=== PATIENT | male | born 1940 | race African-American/Black ===

== ENCOUNTER → 2017-01-21 | Outpatient (CLI) | payer OTHER ==
[~2017-01-21] VITALS: Ht 165.1 cm; Wt 79.4 kg
[~2017-01-21] MED LIST: AMLODIPINE BESY10 MG PO; ANDRO GEL; ANDROGEL1.25 GM TOP; APAP650 PO; ASA81BEC PO; ATORVASTATIN CA40 MG PO; BISACODYL SUPP10 MG RECTAL; BUMETANIDE 1 MG1 M1 PO; BUMETANIDE0.25 MG/1 PO; CALCITRIOL0.5 MCG PO; CARDURA8 MG PO; CELEXA10 MG PO; CENTRUM SILVER1 EAC4 PO; CLONIDINE0.1 PO; COLACE100 MG PO; DEXAMETHASONE 22 M1 PO; FAMOTIDINE20 MG PO; FISH OIL 1,001000 M2 PO; FLEXERIL PO; FOSAMAX 70 MG T70 MG PO; HYDRALAZINE 2525 M1 PO; HYDROCODONE-AP1 EAC6 PO; IRON325 PO; LOPRESSOR25 PO; LOW DOSE ASPIRI81 M1 PO; MEN'S MULTI-VI1 EACH PO; NEURONTIN 300300 M1 PO; NORCO 10-325 T1 EACH PO; OXYCONTIN10 M1 PO; PAIN RELIEVER325 MG PO; PARICALCITOL1 MCG PO; PROSTATE HEALT1 EAC1 PO; PROSTATE HEALT1 EACH PO; PROTONIX40 M1 PO; REQUIP 0.25 M0.25 M1 PO; TAMSULOSIN HCL0.4 MG PO; TRAMADOL 50 MG50 MG PO; TUMS PO; ULTRAM 50MG TAB50 MG PO; VISTARIL 25 MG25 M1 PO; VITAMIN B-625 MG PO; VITAMIN E100 UNIT PO; VITAMINC500 PO; [UNRECOGNIZED DRUG - CODE] SUBQ; vitamin B-6 PO
--- NOTE | ~2017-01-21 | P ---
[facility] [place] [address] PROCEDURE REPORT Name: ADILSON WALTERS Room #: REG SAULEdgar Savage#: [id number] Admission: 01/21/17 Attend Phys: Damon Rebollar MD Discharge: Date of : 42 Report #: [id number] THIS REPORT FOR: //name// CC: Omer Hendrix DO aDmon Rebollar BRIEF HISTORY: The patient is a 76-year-old male who had an upper GI bleed last August, around [place] time. He was found to have a 1.5 to 2 cm ulcer in the antrum. He was positive for H. pylori and was treated. He presents now for followup endoscopy to ensure healing of the ulcer. PREOPERATIVE DIAGNOSIS: History of gastric ulcer with previous gastrointestinal bleeding. POSTOPERATIVE DIAGNOSIS: Qvnk-[id number]-ohvdhjrr gastritis with a few erosions in the body of the stomach. MEDICATIONS: Deep sedation with propofol per anesthesia. SPECIMEN: Biopsies of gastritis related to H. pylori. ESTIMATED BLOOD LOSS: 3 mL. PROCEDURE: EGD with biopsy. FINDINGS: Prior to propofol sedation, procedure of upper endoscopy discussed with the patient as well as potential risks and its complications. He indicates he understands and desires to proceed. DESCRIPTION OF PROCEDURE: With the patient in the left lateral decubitus position, the [employer] video endoscope was inserted in the cervical esophagus under direct vision without difficulty. Examination of this organ through its entire length revealed normal esophageal mucosa down the squamocolumnar junction. The squamocolumnar junction was inspected and noted to be within normal limits. No evidence of Mccoy esophagus. A 1-2 cm sliding-type hiatus hernia was intermittently seen. Scope was advanced in the stomach, which was examined on end views as well as retroflexed views. There was erythema throughout the stomach. A few erosions were seen scattered about, especially in the body of the stomach. The previously identified ulcer was not seen. There was no evidence of antral ulcers and the ulcer was therefore felt to have a completely healed. No mass lesions were seen, and biopsies were obtained to evaluate for H. pylori. Upon retroflexion, a small hiatus hernia was seen. The pylorus, duodenal bulb and postbulbar sweep were inspected and noted to be within normal limits. At that point, the scope was slowly withdrawn and careful circumferential views, confirming the above findings. The patient tolerated the procedure well. [address] [address] PROCEDURE REPORT Name: ADILSON WALTERS Room #: REG VANITA Savage#: [id number] Admission: 01/21/17 Attend Phys: Damon Rebollar MD Discharge: Date of : 41 Report #: [id number] CONDITION OF THE PATIENT UPON DISCHARGE: Following the procedure, the patient drowsy and prepared for colonoscopy. INSTRUCTIONS TO THE PATIENT AND FAMILY AT THE TIME OF DISCHARGE: We will follow up on the biopsies. If he has H. pylori, he may require additional treatment. At this point in time, the ulcer is healed and it may have been related to his previous H. pylori gastritis. However, if he should require regular the use of nonsteroidals, PPI or similar may be indicated. He may not necessarily require long-term the use of PPIs, especially if H. pylori is negative at this point in time. We will follow up on biopsies and make further recommendations as needed. We will proceed with colonoscopy at this point in time. <ELECTRONICALLY SIGNED> By: Damon Rebollar MD 01/21/17 1422 1027 1415 Damon Rebollar MD /nt
--- NOTE | ~2017-01-21 | S ---
[facility] [place] [address] SURGICAL PATH RPT PROCEDURE Name: ADILSON SMITH Room #: REG VANITA Johnson.#: [id number] Admission: 01/21/17 Date of : 42 Discharge: Report #: [id number] Path Case #: [id number] PATHOLOGY REPORT COLLECTION DATE: 01/21/2017 RECEIVED DATE: 01/22/2017 SUBMITTING PHYS: Dr. Damon Rebollar OTHER PHYS: Dr. Omer Hednrix SPECIMEN(S) RECEIVED: A.Gastritis B.Polyp at 30 cm C.Rectal polyp * * * * * * * * * * * * FINAL DIAGNOSIS: A. "Gastritis", biopsy: - Gastric mucosa with mild reactive changes and mild chronic inflammation. - Negative H. pylori immunohistochemical stain (block A1); control reacted appropriately. B. "Polyp at 30 cm", biopsy: - Tubular adenoma; no high-grade dysplasia. C. "Rectal polyp", biopsy: - Tubular adenoma; no high-grade dysplasia. PATHOLOGIST: Ratna Robert M.D. REPORT ELECTRONICALLY SIGNED BY: Ratna Robert M.D. DATE/TIME: 01/23/2017 22:00 * * * * * * * * * * * * GROSS PATHOLOGY: A. Received in formalin labeled "Adilson Smith, gastritis," are 4 segments of montague soft tissue measuring 1.4 x 0.3 x 0.2 cm in aggregate dimensions and ranging from 0.2 to 0.6 cm in maximum dimension. The specimen is submitted entirely in cassette A1. B. Received in formalin labeled "Adilson Smith, polyp 30 cm," is a segment of montague soft tissue measuring 0.3 x 0.2 x 0.2 cm in maximum dimension. The specimen is submitted entirely in cassette B1. C. Received in formalin labeled "Adilson Smith, rectal polyp," is a 0.8 x 0.7 x 0.4 cm polypoid piece of montague soft tissue. The margin is inked and the tissue is sectioned perpendicular to the margin and submitted in its entirety in cassette C1. (KATHLEEN; 01/22/2017) [address] [place] [address] SURGICAL PATH RPT PROCEDURE Name: ADILSON SMITH Room #: REG VANITA Savage#: [id number] Admission: 01/21/17 Date of : 41 Discharge: Report #: [id number] Path Case #: [id number] CLINICAL HISTORY: History of gastric ulcers INITIAL CPT CODE(S): A; 76157, 71435 B; 62695 C; 85913 Professional services performed by [facility] at [address], [place] [address] Technical services performed by [facility] at [address] [place] [address], [facility] [address] [address]. [facility] [address] [address] PHONE: [phone] DIRECTOR: Jacobo Shane M.D. * * * END OF REPORT * * *
--- NOTE | ~2017-01-21 | P ---
[facility] [place] [address] PROCEDURE REPORT Name: ROMEOADILSON Room #: REG VANITA Stephen#: [id number] Admission: 01/21/17 Attend Phys: Damon Rebollar MD Discharge: Date of : 41 Report #: [id number] THIS REPORT FOR: //name// CC: Omer Kevin DATE OF SERVICE: 01/21/2017 BRIEF HISTORY: The patient is a 76-year-old male with family history of colon cancer, brother, for high risk screening colonoscopy due to family history. His last colonoscopy was more than 10 years ago. PREOPERATIVE DIAGNOSIS: High risk screening colonoscopy due to family history of colon cancer. POSTOPERATIVE DIAGNOSES: 1. 1 cm sessile polyp, rectum. 2. Diminutive polyp at 30 cm. 3. Mild to moderate sigmoid diverticulosis coli. MEDICATIONS: Deep sedation with propofol per anesthesia. SPECIMEN: 1. Diminutive polyp at 30 cm. 2. Rectal polyp. ESTIMATED BLOOD LOSS: 3 mL. PROCEDURE: Colonoscopy to cecum and terminal ileum with snare polypectomy and biopsy. FINDINGS: Prior to propofol sedation, procedure of colonoscopy discussed with the patient as well as potential risks and its complications. He indicates he understands and desires to proceed. DESCRIPTION OF PROCEDURE: With the patient in left lateral decubitus position, digital examination was completed which revealed no abnormalities. Subsequently, the [employer] video colonoscope was introduced into the rectum and advanced under direct vision to the cecum. Done with minimal difficulty. The cecum was identified by the ileocecal valve and the appendiceal orifice. I was able to advance the scope into the mouth of the ileocecal valve and see villous pattern. However, due to , we could not deeply cannulate it. At that point, scope was slowly withdrawn and careful circumferential views obtained. As we withdrew the scope, the prep was noted to be excellent. The mucosa was within normal limits, normal vascular pattern, normal light reflex. As we [facility] [address] [place] [address] PROCEDURE REPORT Name: ADILSON WALTERS Room #: REG Edgar Stephen#: [id number] Admission: 01/21/17 Attend Phys: Damon Rebollar MD Discharge: Date of : 41 Report #: [id number] withdrew the scope, he was noted to have normal appearing colonic mucosa. No abnormalities were noted until the sigmoid colon was reached and he was noted to have mild to moderate sigmoid diverticular disease. In addition, at 30 cm, a diminutive polyp was seen and removed by biopsy. Scope was withdrawn in the rectum, in distal rectum a 1 cm sessile polyp was seen and removed by cold snare polypectomy. Upon retroflexion, no additional lesions were seen. Scope was withdrawn. The patient tolerated the procedure well. CONDITION OF THE PATIENT UPON DISCHARGE: Following procedure, the patient was drowsy and arousable. He will be discharged home when fully ambulatory. INSTRUCTIONS TO THE PATIENT AND FAMILY AT THE TIME OF DISCHARGE: Two polyps identified and removed as described above. We will follow up on the path. However, in view of his family history of finding of a 1 cm polyp, we will have him return in 3 years for followup colonoscopy. Suggest high fiber diet for his diverticular disease. He will otherwise return to care of Dr. Omer Hendrix. By: 1100 2206 Damon Rebollar MD /nt
== END ==
LOC: GI 07:51
DX: Z12.11 Encounter for screening for malignant neoplasm of colon (principal); D12.8 Benign neoplasm of rectum; D12.5 Benign neoplasm of sigmoid colon; K29.70 Gastritis, unspecified, without bleeding; K57.30 Diverticulosis of large intestine without perforation or abscess without bleeding; K44.9 Diaphragmatic hernia without obstruction or gangrene; Z80.0 Family history of malignant neoplasm of digestive organs
CPT/HCPCS: 62110; 62900

== ENCOUNTER → 2018-07-16 | Outpatient (CLI) | payer OTHER | LOC: ULTRA 12:25 | DX: I12.9 Hypertensive chronic kidney disease with stage 1 through stage 4 chronic kidney disease, or unspecified chronic kidney disease (principal); N18.4 Chronic kidney disease, stage 4 (severe) ==

== ENCOUNTER 2018-09-21 15:09 | Inpatient (IN) | payer OTHER ==
[~2018-09-21] VITALS: Ht 165.1 cm; Wt 81.6 kg
--- NOTE | ~2018-09-21 | D ---
[facility] [place] [address] DISCHARGE SUMMARY Name: ADILSON WALTERS Room #: 450-P [facility] IN M.R.#: [id number] Admission: 09/22/18 Attend Phys: Omer Hendrix DO Discharge: Date of : 41 Report #: [id number] THIS REPORT FOR: //name// CC: Avelino Lea MD [facility] Omer Melendrez MD DATE OF SERVICE: 09/24/2018 HOSPITAL COURSE: This 78-year-old black male was admitted with severe pain in his back running down the front of his left leg with inability to walk as well as acute kidney injury. The patient says his back began to hurt him for the last few days. On the day of admission, he was unable to hardly move his leg because of pain. He denied falls, coughing, or any heavy lifting. PAST MEDICAL HISTORY: Significant for multiple comorbidities including previous lumbar laminectomy for radiculopathy, cervical laminectomy for degenerative disk disease, left carotid endarterectomy, stable angina with coronary artery disease, abdominal hernia surgery, rheumatoid arthritis of the hands, degenerative arthritis of neck and lumbar spine, previous alcoholism with seizures, hypertension, allergic rhinitis, chronic anxiety, depression, compression fracture of thoracic spine, hypogonadism, osteoporosis, restless legs syndrome, idiopathic peripheral neuropathy, previous gastric ulcer, type 2 diabetes with neuropathy. PHYSICAL EXAMINATION: GENERAL: Initial physical revealed a very uncomfortable black male, unable to move his left leg. Straight leg raise is positive on the left. VITAL SIGNS: Initially stable. LUNGS: Clear. CARDIAC: Negative. NECK: Revealed bilateral carotid bruits. HEART: Rhythm was regular without gallop or significant murmur. ABDOMEN: Soft and nontender. EXTREMITIES: Had no edema. There was mild ulnar deviation of his fingers. His left hip flexor was weak. He could not stand on his own or walk on his own because of pain and weakness in the left leg. LABORATORY DATA: Initial BUN 40, creatinine 3.3, sodium 136, potassium 5.1, CO2 23. Phosphorus low at 2.4. Blood sugar 109. White count 4900, hemoglobin 12.0. Urinalysis negative. CAT scan of the lumbar spine showed arthritic changes with previous fusion in L4-L5 and right neural foraminal stenosis. MRI of the lumbar spine revealed moderate spinal stenosis and severe narrowing of the lateral recess bilaterally at L3-L4 and severe spinal stenosis and severe narrowing of the lateral recess bilaterally due to large broad-based disk bulge at L2-L3. The patient received IV steroids and muscle relaxants. He did [address] [address] DISCHARGE SUMMARY Name: ROMEOADILSON Tejada Room #: 450-P [facility] IN ..#: [id number] Admission: 09/22/18 Attend Phys: Omer Hendrix DO Discharge: Date of : 41 Report #: [id number] improve and was able to ambulate in the [place] prior to discharge. His creatinine fell to a low of 2.4 but then was 2.8 on day of discharge, so I decided to give him additional 500 mL of half-normal saline IV before discharge. Final hemoglobin was 12 grams, white count 9300. Sodium 137, potassium 5.1, CO2 23, BUN 50, creatinine 2.8, estimated GFR 27. Blood sugar 127, calcium 9.2. He had been seen in consult by Dr. Lea of Cardiology who felt his heart status was stable. On 09/24/2018, vital signs were stable. He was ambulatory without pain, keeping out of the bed, could get out of bed by himself and was discharged home. DISCHARGE MEDICATIONS: Aspirin 81 mg daily, methocarbamol 500 mg t.i.d. p.r.n. back pain, isosorbide mononitrate 60 mg daily, amlodipine 5 mg daily, citalopram 10 mg daily, doxazosin 8 mg at bedtime, clonidine 0.1 mg t.i.d., ropinirole 0.25 mg at bedtime, paricalcitol 1 mcg at bedtime, vitamin E 100 units daily, ascorbic acid 500 mg daily, atorvastatin 40 mg daily, metoprolol tartrate 25 mg b.i.d., fish oil 1000 mg daily, multivitamin 1 daily, pyridoxine 25 mg daily, famotidine 20 mg daily p.r.n. heartburn, tramadol 50 mg p.r.n. pain, Bumex 0.25 mg daily and nitroglycerin sublingual p.r.n. chest pain. DISCHARGE INSTRUCTIONS: He will see me in 1 week and he sees his real estate processor, Dr. Melendrez on 10/02/2018. FINAL DIAGNOSES: 1. Acute lumbar radiculopathy. 2. Acute kidney injury. 3. Chronic kidney disease, stage 4. 4. Hypertension. 5. Rheumatoid arthritis, advanced degenerative arthritis of cervical spine and lumbar spine. 6. Coronary artery disease with stable angina. 7. Carotid vascular disease. 8. Chronic anxiety and depression. 9. Hypertension. 10. Hyperlipidemia. By: [phone] Omer Hendrix, DO /nt
[2018-09-21 15:17] VITALS: BP 135/66
[2018-09-21] MEDS ORDERED: NORCO 5-325 TA1 EACH PO (16:52)
[2018-09-21 17:47] LABS: URINE BILIRUBIN NEGATIVE (Negative); URINE BLOOD NEGATIVE (Negative); URINE CLARITY CLEAR; URINE COLOR YELLOW; URINE GLUCOSE-RANDOM* NEGATIVE (Negative); URINE KETONES NEGATIVE (Negative); URINE LEUKOCYTES-REFLEX NEGATIVE (Negative); URINE NITRITE-REFLEX NEGATIVE (Negative); URINE PROTEIN (DIPSTICK) NEGATIVE (Negative); URINE UROBILINOGEN 0.2 E.U./dl (0.2-1.0)
[2018-09-21 18:02] LABS: HEMATOCRIT 35.1 % (42.0-52.0); HEMOGLOBIN 11.9 gm/dL (14.0-18.0); MCHC 33.8 g/dL (28.0-37.0); MCV 97.7 fL (80.0-100.0); RBC 3.6 mil/uL (4.50-6.00); RDW 14.3 % (10.5-14.5); WBC 7.6 thou/uL (4.0-11.0)
[2018-09-21 18:17] LABS: CALCIUM 9.5 mg/dL (8.5-10.1); CREATININE 3.3 mg/dL (0.7-1.3); POTASSIUM 4.5 mmol/L (3.5-5.1)
[2018-09-21 20:07] VITALS: BP 124/74
[2018-09-21 20:42] VITALS: BP 124/74
[2018-09-21 20:47] VITALS: BP 173/94
[2018-09-22 03:47] VITALS: BP 152/85
[2018-09-22 06:05] LABS: MCH 32.1 pg (26.0-34.0); MCHC 32.5 g/dL (28.0-37.0); MCV 98.6 fL (80.0-100.0); RBC 3.76 mil/uL (4.50-6.00); RDW 14.6 % (10.5-14.5); WBC 4.9 thou/uL (4.0-11.0)
[2018-09-22 06:37] LABS: ALBUMIN 3.5 g/dL (3.4-5.0); CALCIUM 9.1 mg/dL (8.5-10.1); PHOSPHORUS 2.4 mg/dL (2.5-4.9); POTASSIUM 5.1 mmol/L (3.5-5.1)
[2018-09-22 07:32] VITALS: BP 158/89
[2018-09-22] MEDS ORDERED: NITROGLYCERIN0.4 MG SUBLING (10:58)
[2018-09-22 15:53] VITALS: BP 149/70
[2018-09-22 19:56] VITALS: BP 123/65
[2018-09-23 04:22] LABS: BASOPHILS 0.1 % (0.0-2.0); EOSINOPHILS 0.3 % (0.0-3.0); HEMATOCRIT 35.8 % (42.0-52.0); HEMOGLOBIN 11.6 gm/dL (14.0-18.0); LYMPHOCYTES 11.6 % (24.0-44.0); MCH 32.1 pg (26.0-34.0); MCHC 32.5 g/dL (28.0-37.0); MCV 98.9 fL (80.0-100.0); MONOCYTES 7.6 % (1.0-8.0); PLATELET COUNT 183 thou/uL (150-400); POLYS 80.4 % (36.0-66.0); RBC 3.62 mil/uL (4.50-6.00); RDW 14.7 % (10.5-14.5); WBC 9.9 thou/uL (4.0-11.0)
[2018-09-23 05:02] LABS: CALCIUM 8.9 mg/dL (8.5-10.1); CREATININE 2.4 mg/dL (0.7-1.3)
[2018-09-23 05:06] LABS: POTASSIUM 5.3 mmol/L (3.5-5.1)
[2018-09-23 05:28] VITALS: BP 150/79
[2018-09-23 07:26] VITALS: BP 154/80
--- NOTE | 2018-09-23 09:59 | EKG ---
[address] [employer] [place] [address] ELECTROCARDIOGRAM REPORT Name: ADILSON WALTERS Terrell Room #: 450-P ADM IN M.R.#: [id number] Admission: 09/22/18 Attend Phys: Omer Hendrix DO Discharge: Date of : 41 Report #: [id number] THIS REPORT FOR: //name// [facility] Test Date: 2018-09-22 Test Time: 13:23:41 Pat Name: ADILSON WALTERS Department: Room: 450 P Gender: M [employer] Coach: JESSICA : 1940 Requested By: Avelino Lea Order Number: [id number] MD: Avelino Lea Measurements Intervals [place] Rate: 65 P: 56 MD: 154 QRS: 16 QRSD: 92 T: 246 QT: 428 QTc: 445 Interpretive Statements Sinus rhythm Abnrm T, consider ischemia, lateral lds Compared to ECG 08/12/2017 15:55:49 Atrial premature complex(es) no longer present Electronically Signed On 09-23-2018 9:59:18 HOT SHOT by Avelino Lea [email or web address] <ELECTRONICALLY SIGNED> By: Avelino Lea MD, [facility] 09/23/18 0959 1323 132 vAelino Lea MD, [facility] /EPI
[2018-09-23 14:28] VITALS: BP 132/71
[2018-09-23 19:52] VITALS: BP 120/68
[2018-09-24 04:00] VITALS: BP 139/81
[2018-09-24 05:30] LABS: ABSOLUTE NEUTROPHILS 7.3 thou/uL (1.4-8.2); BASOPHILS 0.1 % (0.0-2.0); EOSINOPHILS 0.3 % (0.0-3.0); HEMATOCRIT 36.2 % (42.0-52.0); MCH 32.6 pg (26.0-34.0); MCHC 33.2 g/dL (28.0-37.0); MCV 98.2 fL (80.0-100.0); PLATELET COUNT 178 thou/uL (150-400); POLYS 78.6 % (36.0-66.0); RBC 3.69 mil/uL (4.50-6.00); RDW 14.5 % (10.5-14.5); WBC 9.3 thou/uL (4.0-11.0)
[2018-09-24 05:48] LABS: CALCIUM 9.2 mg/dL (8.5-10.1); CREATININE 2.8 mg/dL (0.7-1.3); POTASSIUM 5.1 mmol/L (3.5-5.1)
--- NOTE | 2018-09-24 07:20 | H ---
[facility] [place] [address] HISTORY AND PHYSICAL Name: ADILSON WALTERS Room #: 450-P ADM IN M.R.#: [id number] Admission: 09/22/18 Attend Phys: Omer Hendrix DO Discharge: Date of : 41 Report #: [id number] THIS REPORT FOR: //name// CC: Avelino Lea MD [facility] Omer Melendrez MD DATE OF SERVICE: 09/22/2018 TIME: 4:50. HISTORY OF PRESENT ILLNESS: This 78-year-old black male is admitted after overnight observation with lumbar radiculopathy and acute kidney injury. The patient states that for the past few days, he has developed severe pain in his back radiating down the front of his left leg to the knee. He has been unable to bear weight or walk. He denied any precipitating factors. He did have a fall on his bottom one month ago during the snowstorm here. He denied bowel or bladder dysfunction. PAST MEDICAL HISTORY: Severe lumbar degenerative disk disease with previous lumbar laminectomy, cervical laminectomy for degenerative disk disease, left carotid endarterectomy, abdominal hernia surgery, coronary artery disease with unstable angina with inability to do a heart catheterization because of his kidney disease, which is chronic as stage 4. 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 MEDICATIONS ON ADMISSION: Citalopram 10 mg daily, Cialis 20 mg as needed, vitamin E 100 units daily, ferrous sulfate 325 mg t.i.d., aspirin 81 mg daily, isosorbide mononitrate 60 mg daily, metoprolol succinate 50 mg daily, azelastine 1 spray to each nostril b.i.d., omeprazole 20 mg daily, ropinirole 0.25 mg at bedtime, clonidine 0.1 mg t.i.d., alendronate 70 mg weekly, atorvastatin 40 mg daily, Bumex 1 mg daily, paricalcitol 1 mcg daily, doxazosin 8 mg nightly. ALLERGIES: None. 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 REVIEW OF SYSTEMS: Denies recent fever, chills, cough, chest pain, exertional dyspnea, dysuria or diarrhea. [address] [address] HISTORY AND PHYSICAL Name: ADILSON WALTERS Room #: 450-P [facility] IN .R.#: [id number] Admission: 09/22/18 Attend Phys: Omer Hendirx DO Discharge: Date of : 41 Report #: [id number] PHYSICAL EXAMINATION: GENERAL: A pleasant black male as long as he is lying in bed. VITAL SIGNS: BP 124/74, pulse 68, respiration 16, temperature afebrile. HEAD: No rash or trauma. EARS, NOSE AND THROAT: No lesions. EYES: No icterus. NECK: Supple, without bruits. LUNGS: Clear. CARDIOVASCULAR: Heart rhythm regular without gallop. ABDOMEN: Soft, nontender. EXTREMITIES: No peripheral edema. His hands have very mild ulnar deviation. NEUROLOGIC: Straight leg raise is positive on the left. MUSCULOSKELETAL: His left hip flexor is weak. He cannot stand on his own or walk on his own and has difficulty walking even with help. LABORATORY DATA: Electrolytes normal. BUN initially 40, creatinine 3.3, sodium 136, potassium 5.1, CO2 23, phosphorus low at 2.4. Albumin normal at 3.5, hemoglobin 12.0, white count 4900. Blood sugar 109. Urinalysis essentially negative. CAT scan of the lumbar spine shows significant arthritic changes with spinal fusion at L4-L5, right-sided central canal stenosis and right neural foraminal stenosis. MRI is pending. IMPRESSION: 1. Severe left lumbar radiculopathy with history of lumbar degenerative disk disease and previous spinal fusion. 2. Acute kidney injury. 3. Chronic kidney disease, stage 3. 4. Coronary artery disease with unstable angina. 5. Hypertension. 6. Mixed hyperlipidemia. 7. History of degenerative disk disease. 8. Carotid artery disease. 9. Rheumatoid arthritis. 10. Rheumatoid arthritis of hands. PLAN: IV fluids to improve kidney function as his baseline creatinine is 2.4. MRI of lumbar spine. Pain management to see. Hopefully will not need Neurosurgery consult. Physical therapy attempt. Cardiology to follow. PROGNOSIS: Guarded. <ELECTRONICALLY SIGNED> By: Omer Hendrix DO 09/24/18 0720 0939 1337 Omer Hendrix DO /nt
[2018-09-24] MEDS ORDERED: METHOCARBAMOL500 M1 PO (07:42)
[2018-09-24] MEDS ORDERED: IMDUR 60 MG TAB60 M1 PO (07:47)
[2018-09-24] MEDS ORDERED: CELEXA10 MG PO (07:47)
[2018-09-24] MEDS ORDERED: AMLODIPINE BESYL5 M1 PO (07:47)
--- NOTE | 2018-09-24 07:50 | HC ---
[facility] [place] [address] CONSULTATION Name: ADILSON WALTERS Room #: 450-P [facility] IN ..#: [id number] Admission: 09/22/18 Attend Phys: Omer Hendrix DO Discharge: Date of : 41 Report #: [id number] THIS REPORT FOR: //name// CC: Omer Hendrix DATE OF SERVICE: 09/22/2018 REASON FOR CONSULTATION: Coronary artery disease. HISTORY OF PRESENT ILLNESS: The patient is a 78-year-old gentleman with history of hypertension, prior carotid endarterectomy, advanced chronic kidney disease, rheumatoid arthritis and coronary artery disease by prior abnormal nuclear stress testing. The patient now presents with severe lower back pain with left leg radiculopathy. MRI imaging demonstrates prior laminectomy at L4 and L5. There is severe narrowing of the right lateral recess at L4; L2-L3 exhibits severe spinal stenosis with severe narrowing of the lateral recesses bilaterally with a large broad-based disk bulging. The patient denies back injury or fall. He reports inability to ambulate due to the pain. He denies any change in the nature of his angina, which continues to occur only after fairly vigorous activities usually after a heavy meal. He reports that his angina is actually getting better. Due to advanced kidney, decision was made to approach his coronary artery disease and peripheral disease pharmacologically rather than with specific intervention. He denies heart failure symptoms including orthopnea, paroxysmal nocturnal dyspnea, or lower extremity edema. No history of near syncope or syncope. ALLERGIES: There are no known drug allergies. MEDICATIONS: Include Fosamax, amlodipine 5 mg daily, aspirin 81 mg daily, atorvastatin 40 mg daily, Bumex 1 mg daily, citalopram 10 mg daily, clonidine 0.1 mg 3 times a day, Cardura 8 mg at night, Imdur 60 mg daily, metoprolol 25 mg twice daily, Requip at bedtime. PAST MEDICAL HISTORY: Medical records have been reviewed and include a history of prior carotid endarterectomy, advanced chronic kidney disease, paroxysmal atrial tachycardia, rheumatoid arthritis, cervical spine and lower back surgery, herniorrhaphy, total hip arthroplasty. SOCIAL HISTORY: He is a former smoker, quit in 1980. FAMILY HISTORY: Notable for mother with coronary artery disease and a pacemaker. REVIEW OF SYSTEMS: All systems negative except as that noted above. PHYSICAL EXAMINATION: [facility] [address] [place] [address] CONSULTATION Name: ADILSON WALTERS Room #: [address] [place] [address] IN M.R.#: [id number] Admission: 09/22/18 Attend Phys: Omer Hendrix DO Discharge: Date of : 41 Report #: [id number] GENERAL: A pleasant gentleman in no distress. VITAL SIGNS: Blood pressure is 158/80, heart rate is 67 and regular. He is afebrile. HEENT: There are neither xanthelasma, subcutaneous xanthomata, oral mucosal or digital cyanosis or kyphoscoliosis present. CHEST: Clear to auscultation and percussion. CARDIOVASCULAR: Regular rate and rhythm with normal S1, S2. ABDOMEN: Soft and nontender. EXTREMITIES: Without cyanosis, clubbing or edema. Radial pulses are 2+. NEUROLOGIC: He is alert with a nonfocal exam. LABORATORY DATA: Sodium 136, creatinine 3.0. White count 4.9, hemoglobin 12, hematocrit 37, platelet count 186. MRI as detailed above. IMPRESSION: 1. Coronary artery disease, clinically stable. Stable exertional angina. 2. Severe spinal stenosis with radiculopathy. 3. Hypertension. 4. Chronic kidney disease stage 4. 5. Peripheral vascular disease; prior carotid endarterectomy. 6. Paroxysmal atrial tachycardia. RECOMMENDATIONS: 1. Resume blood pressure and antianginal medications. 2. Resume aspirin assuming no specific intervention is needed for his back. 3. Continued efforts towards aggressive risk factor modification. The patient remained stable from a cardiovascular standpoint. Thank you for asking me to participate in his care. <ELECTRONICALLY SIGNED> By: Avelino Lea MD, FACC 09/24/18 0750 1319 1110 Avelino Lea MD, FACC /nt
[2018-09-24 08:00] VITALS: BP 139/81; BP 160/81
[2018-09-24 09:15] VITALS: BP 139/81
== END 2018-09-24 16:32 | disposition home or self-care (01) | DRG 552 ==
LOC: ER 15:09 → EROBS 18:46 → 4W 20:40 → ENTRNSPT 09-24 15:21 → EDTRNSPTSTS 09-24 15:22 → 4W 09-24 16:32
PROVIDERS: Family Medicine; Physician Assistant; ADMIT Internal Medicine
DX: M51.16 Intervertebral disc disorders with radiculopathy, lumbar region (principal); I47.1 Supraventricular tachycardia; N18.4 Chronic kidney disease, stage 4 (severe); N17.9 Acute kidney failure, unspecified; I25.110 Atherosclerotic heart disease of native coronary artery with unstable angina pectoris; M48.061 Spinal stenosis, lumbar region without neurogenic claudication; M06.9 Rheumatoid arthritis, unspecified; I12.9 Hypertensive chronic kidney disease with stage 1 through stage 4 chronic kidney disease, or unspecified chronic kidney disease; M50.10 Cervical disc disorder with radiculopathy, unspecified cervical region; F41.9 Anxiety disorder, unspecified; F32.9 Major depressive disorder, single episode, unspecified; M81.0 Age-related osteoporosis without current pathological fracture; G56.03 Carpal tunnel syndrome, bilateral upper limbs; E78.2 Mixed hyperlipidemia; E11.51 Type 2 diabetes mellitus with diabetic peripheral angiopathy without gangrene; E11.42 Type 2 diabetes mellitus with diabetic polyneuropathy; I77.9 Disorder of arteries and arterioles, unspecified; E11.22 Type 2 diabetes mellitus with diabetic chronic kidney disease; G25.81 Restless legs syndrome; M19.90 Unspecified osteoarthritis, unspecified site; E21.3 Hyperparathyroidism, unspecified; Z96.642 Presence of left artificial hip joint; Z79.899 Other long term (current) drug therapy; Z79.82 Long term (current) use of aspirin; Z87.891 Personal history of nicotine dependence; Z87.81 Personal history of (healed) traumatic fracture; Z98.1 Arthrodesis status
CPT/HCPCS: 10045

== ENCOUNTER → 2018-09-26 | Outpatient (CLI) | payer OTHER ==
[~2018-09-26] VITALS: Ht 165.1 cm; Wt 83.4 kg
[~2018-09-26] MED LIST changes: +AMLODIPINE BESYL5 M1 PO; +IMDUR 60 MG TAB60 M1 PO; +METHOCARBAMOL500 M1 PO; +NITROGLYCERIN0.4 MG SUBLING; +NORCO 5-325 TA1 EACH PO
--- NOTE | ~2018-09-26 | HPC ---
[facility] [address] [place] [address] PAIN MANAGEMENT CONSULTATION Name: ADILSON WALTERS Terrell Room #: REG VANITA JohnsonStephen#: [id number] Admission: 09/26/18 Attend Phys: Nilesh Chapman MD Discharge: Date of : 41 Report #: [id number] THIS REPORT FOR: //name// CC: Omer Chapman DATE OF SERVICE: 09/26/2018 PRIMARY CARE PHYSICIAN: Omer Hendrix DO CHIEF COMPLAINT: Low back pain down to the knee and into the buttocks. HISTORY OF PRESENT ILLNESS: The patient is a 78-year-old gentleman who has been hospitalized recently. He was seen in the Emergency Room. Had pain and discomfort in his lower back. It has been problematic over the past 3 weeks. He did fall. States that his leg gets somewhat weak. This causes worsening of his pain following 3 days. Has been experiencing pain that radiates down to the lateral portion of his left leg. Pain is worse when he is walking. Does walk with a rolling walker. Started using the walker after the fall. Prior to that, he was not using a walker. Denies any new bowel or bladder dysfunction. The patient has had back surgery about 3 years ago. He also has had a left hip replacement about 4 years ago. Denies any changes, problem with bowel or bladder function. PAST MEDICAL HISTORY: Back surgery at L4-L5 in 07/1990, hypertension, restless leg syndrome, degenerative arthritis, kidney disease, carotid artery disease, dysphagia, acute renal insufficiency, history of alcohol rehab since 1980, mild encephalopathy with some decreased cognition, hyperparathyroidism. PAST SURGICAL HISTORY: Left great toe surgery in 1997, back surgery L4-L5 in 07/1990, left hip replacement, left carotid endarterectomy with development of airway compromise on 02/19/2014, left inguinal hernia repair on 01/07/1995, EGD oral surgery -- maxillary extraction, upper denture. CURRENT MEDICATIONS: Cardura 8 mg at bedtime, clonidine 0.1 mg t.i.d., Requip 0.25 mg, paricalcitol 1 mcg, vitamin E capsule, vitamin C 500 mg, Lipitor 40 mg, metoprolol 25 mg b.i.d., fish oil 1000 mg, Centrum Silver, vitamin B6 25 mg, famotidine 20 mg p.r.n. heartburn, tramadol 50 mg p.r.n. pain, Bumex 2.5 mg, aspirin low dose 81 mg, Tylenol 325 mg. SOCIAL HISTORY: He is retired, has not worked for 7 years. REVIEW OF SYSTEMS: Generally good health, recent weight change, fatigue, weakness, wears glasses, cataracts/glaucoma, chronic sinus problems, shortness of breath, heart trouble, chest pain, palpitations, shortness of breath when lying flat, frequent urination, awakens to urinate, rash, itching, memory loss, [place] [address] PAIN MANAGEMENT CONSULTATION Name: ADILSON WALTERS Room #: REG CLEdgar Savage#: [id number] Admission: 09/26/18 Attend Phys: Nilesh Chapman MD Discharge: Date of : 41 Report #: [id number] confusion, depression, glandular/hormone problem, hot and cold intolerance. LABORATORY DATA: MRI of the lumbar spine dated 09/22/2018. 1. Previous L4-L5 posterior fusion with bilateral pedicle screws. Gregorio rods and intervertebral cages. 2. L2-L3, Moderate degenerative disk disease. [id number] facet arthropathy bilaterally. Large broad-based disk bulge. Severe spinal stenosis. The AP diameter of the spinal canal is 4.5 mm with effacement of the thecal sac and crowding of the nerve roots. Severe narrowing of the lateral recess bilaterally. No neural foraminal narrowing. 3. L3-L4, moderate degenerative disk disease, moderate facet arthropathy of the right, mild facet arthropathy of the left. Mild broad-based disk bulge. Moderate spinal stenosis. The AP diameter of spinal canal measures 7 mm. Severe narrowing bilaterally. Mild bilateral L3 neural foraminal narrowing. 4. L4-L5 previous posterior fusion and diskectomy with intervertebral cages. The intervertebral cage and right paracentral osteophyte resulting in mild narrowing of the right aspects of the spinal canal. Severe narrowing of the right lateral recess and moderate to severe right L4 neural foraminal area. L5-S1 mild degenerative disk disease, mild facet arthropathy. Bilateral mild broad-based disk bulge. No spinal stenosis or neural foraminal narrowing. PAIN CLINIC ASSESSMENT/PQRS: 1. The patient has arthritic changes in the lower portion of his back. He has not been treated for rheumatoid arthritis. 2. Height 5 feet 5 inches, weight 183 pounds, BMI is 30. 3. Vital signs: Blood pressure 138/75, pulse 69, respiratory rate 18, room air saturation is 100%. 4. Pain intensity 5/10. 5. Fall risk. The patient has not fallen in the last 3 months. 6. Blood thinner. The patient is not on a blood thinning medication. 7. Hypertension. The patient has been treated for hypertension. 8. Opiate therapy greater than 6 weeks. The patient is using Ultram medication. 9. Risk assessment tool, low for opioid use. 10. Functional assessment tool 49/70. 11. Recreational drug use. The patient has never used recreational drugs. 12. Tobacco: The patient never smoked. 13. Alcohol: The patient denies frequent use of alcoholic beverages. PHYSICAL EXAMINATION: GENERAL: The patient is a well-developed, well-nourished black male. He moves slowly with going from a sitting to a standing position. He is using a walker. HEENT: Normocephalic, atraumatic. Extraocular eye muscles intact. Sclerae nonicteric. Mucous membranes are moist. NECK: Without adenopathy or JVD. The patient has some limited motion in his neck. Upper extremity muscle strength is judged to be 5-/5 for the major muscle [address] [address] PAIN MANAGEMENT CONSULTATION Name: ADILSON WALTERS Room #: REG VANITA Savage#: [id number] Admission: 09/26/18 Attend Phys: Nilesh Chapman MD Discharge: Date of : 41 Report #: [id number] groups in the upper extremity. The patient uses hands to go from a sitting to a standing position. Muscle strength in the laborer vineyard strength is judged to be 5-/5 for the upper extremity. HEART: Regular rate. ABDOMEN: Nontender. Bowel sounds present. EXTREMITIES: Lower extremity muscle strength is judged to be 4+ for the lower extremities. The patient requires use of his hands to go from a sitting to a standing position. Walks with use of his rolling walker. Attempted a few steps without the walker and thought better and reach for the walker to ambulate. Complains of pain and discomfort in the anterior thigh area on the L3-L4 dermatomal distribution involving the right thigh. Also, has some left hip pain, which has been replaced. The patient has weakness in the L3-L4 lumbar distribution. IMPRESSION: 1. Back surgery at L4-L5 in 07/1990. 2. Hypertension. 3. Restless leg syndrome. 4. Degenerative arthritis. 5. Kidney disease. 6. Carotid artery disease. 7. Dysphagia. 8. Acute renal insufficiency. 9. History of alcohol rehab since 1980. 10. Mild encephalopathy with some decreased cognition. 11. Hyperparathyroidism. RECOMMENDATIONS: We discussed treatment options with the patient. Risks and benefits of an epidural steroid injection were discussed. Possible complications were reviewed. They include but are not limited to infection, worsening of pain, no improvement in pain, bleeding, worsening of pain, nerve trauma with weakness or paralysis. The patient would like to proceed. We did review the patient's MRI with him. It was pulled up on the screen. We went point by point over his findings. Noted the areas of stenosis, which are quite significant in certain areas. Overall, the patient feels that he would like to proceed with an injection. PROCEDURE NOTE: He was taken to the procedure area. He was assisted in getting on the examination table. A pillow was placed under the abdomen to bolster improve positioning. Fluoroscopy using anterior, posterior as well as lateral viewing were implemented. The patient's back was sterilely prepped with a Betadine solution and allowed to dry. The L3-L4 interspace was identified. A 0.25% bupivacaine using a midline approach was undertaken. A 17-gauge Tuohy with loss of resistance technique was used to gain access to the epidural space. There was no CSF, heme or paresthesia. Total of 80 mg Depo-Medrol, 40 mg triamcinolone and 2 mL were injected. This was over about a 10-minute period of [address] [address] PAIN MANAGEMENT CONSULTATION Name: ADILSON WALTERS Room #: REG VANITA Savage#: [id number] Admission: 09/26/18 Attend Phys: Nilesh Chapman MD Discharge: Date of : 41 Report #: [id number] time just a few drops at a time. Continue to question the patient as whether or not he was having pain or discomfort or noting any sensory changes, he denied any. The patient was then taken after the procedure to the recovery room where he remained for an appropriate amount of time. A total of 13 seconds fluoro time was used. The patient's pain was 3 at the time of discharge. He will follow up in the future as needed. We would like to thank you for letting us participate in his care. We hope he continues to improve. By: [id number] Nilesh Chapman MD /[facility]
[2018-09-26 10:45] VITALS: BP 138/75
--- NOTE | 2018-09-26 11:07 | NUR ---
Pain Clinic Assessment: 1. History of Osteoarthritis: History of Rheumatoid Arthritis: * NOT SPECIFIED 2. Height: 5 ft. 5 in. 165.1 cm. Weight: 183.8 lb. oz. 83.371 kg. Patient's BMI: 30.6 3. Vital Signs: BP: 138/75 Pulse: 69 Resp: 18 Temp: 02 Sat: 100 ECG Mon: 4. Pain Intensity: 5 5. Fall Risk: Dizziness: N Needs help standing or walking: Y Fallen in the last 3 months: Y Fall risk comments: 6. Patient on Blood Thinner: None 7. History of Hypertension: Y 8. Opioid Therapy greater than 6 weeks: Y Opiate Contract Signed: 9. Risk Assessment Tool Provided: 10. Functional Assessment Tool: 11. Recreational Drug Use: Never Drug Type: Tobacco Use: Never Smoker Tobacco Type: Amount or Packs/day: How Many Years: Alcohol Use: Past use Frequency: Quant:
== END | disposition home or self-care (01) ==
LOC: PAIN 07:19
DX: M51.37 Other intervertebral disc degeneration, lumbosacral region (principal); M48.061 Spinal stenosis, lumbar region without neurogenic claudication; M99.73 Connective tissue and disc stenosis of intervertebral foramina of lumbar region; M25.78 Osteophyte, vertebrae; I10 Essential (primary) hypertension; G25.81 Restless legs syndrome; M19.90 Unspecified osteoarthritis, unspecified site; I65.29 Occlusion and stenosis of unspecified carotid artery; R13.10 Dysphagia, unspecified; G93.49 Other encephalopathy; E21.2 Other hyperparathyroidism; E11.22 Type 2 diabetes mellitus with diabetic chronic kidney disease; I12.9 Hypertensive chronic kidney disease with stage 1 through stage 4 chronic kidney disease, or unspecified chronic kidney disease; N18.4 Chronic kidney disease, stage 4 (severe); F32.9 Major depressive disorder, single episode, unspecified; Z98.890 Other specified postprocedural states; Z96.642 Presence of left artificial hip joint; Z79.899 Other long term (current) drug therapy; Z79.82 Long term (current) use of aspirin; Z98.1 Arthrodesis status

== ENCOUNTER → 2018-12-30 | Outpatient (CLI) | payer OTHER | LOC: ULTRA 12:50 | DX: K80.80 Other cholelithiasis without obstruction (principal) ==

== ENCOUNTER → 2019-01-16 | Outpatient (CLI) | payer OTHER ==
[~2019-01-16] VITALS: Ht 165.1 cm; Wt 82.2 kg
[2019-01-16 11:12] VITALS: BP 145/85
--- NOTE | 2019-01-16 11:18 | NUR ---
Pain Clinic Assessment: 1. History of Osteoarthritis: History of Rheumatoid Arthritis: * NOT SPECIFIED 2. Height: 5 ft. 5 in. 165.1 cm. Weight: 181.2 lb. oz. 82.192 kg. Patient's BMI: 30.2 3. Vital Signs: BP: 145/85 Pulse: 72 Resp: 16 Temp: 02 Sat: 100 ECG Mon: 4. Pain Intensity: 8 5. Fall Risk: Dizziness: N Needs help standing or walking: N Fallen in the last 3 months: Y Fall risk comments: FELL TWICE-UNSTEADY ON TRAMADOL 6. Patient on Blood Thinner: None 7. History of Hypertension: Y 8. Opioid Therapy greater than 6 weeks: Y Opiate Contract Signed: 9. Risk Assessment Tool Provided: 10. Functional Assessment Tool: 49/ 11. Recreational Drug Use: Never Drug Type: Tobacco Use: Never Smoker Tobacco Type: Amount or Packs/day: How Many Years: Alcohol Use: Past use Frequency: Quant:
== END | disposition home or self-care (01) ==
LOC: PAIN 06:43
DX: M51.16 Intervertebral disc disorders with radiculopathy, lumbar region (principal); Z79.899 Other long term (current) drug therapy; Z79.82 Long term (current) use of aspirin

== ENCOUNTER → 2019-02-11 | Outpatient (CLI) | payer OTHER ==
[~2019-02-11] VITALS: Ht 165.1 cm; Wt 81.6 kg
[~2019-02-11] MED LIST changes: +METHOCARBAMOL500 M2 PO; +NORVASC5 MG PO
[2019-02-11 14:08] VITALS: BP 155/78
--- NOTE | 2019-02-11 14:11 | NUR ---
Pain Clinic Assessment: 1. History of Osteoarthritis: HANDS SHOULDERS SPINE History of Rheumatoid Arthritis: NO 2. Height: 5 ft. 5 in. 165.1 cm. Weight: 180.0 lb. oz. 81.648 kg. Patient's BMI: 30.0 3. Vital Signs: BP: 155/78 Pulse: 64 Resp: 14 Temp: 02 Sat: 99 ECG Mon: 4. Pain Intensity: 7 5. Fall Risk: Dizziness: N Needs help standing or walking: N Fallen in the last 3 months: N Fall risk comments: FELL TWICE-UNSTEADY ON TRAMADOL 6. Patient on Blood Thinner: None 7. History of Hypertension: Y 8. Opioid Therapy greater than 6 weeks: Y Opiate Contract Signed: 9. Risk Assessment Tool Provided: 10. Functional Assessment Tool: 49 11. Recreational Drug Use: Never Drug Type: Tobacco Use: Never Smoker Tobacco Type: Amount or Packs/day: How Many Years: Alcohol Use: Past use Frequency: Quant:
== END | disposition home or self-care (01) ==
LOC: PAIN 07:08
DX: M54.16 Radiculopathy, lumbar region (principal); G89.29 Other chronic pain; Z87.19 Personal history of other diseases of the digestive system; Z79.899 Other long term (current) drug therapy; Z79.82 Long term (current) use of aspirin

== ENCOUNTER 2020-10-11 05:05 | Inpatient (IN) | payer OTHER ==
[~2020-10-11] VITALS: Ht 165.1 cm; Wt 61.9 kg
[2020-10-11 05:07] VITALS: BP 169/75
[2020-10-11 06:15] LABS: ABSOLUTE NEUTROPHILS 5.3 thou/uL (1.4-8.2); BASOPHILS 0.8 % (0.0-2.0); CREATININE 3.3 mg/dL (0.7-1.3); EOSINOPHILS 0.9 % (0.0-3.0); HEMATOCRIT 35.5 % (42.0-52.0); HEMOGLOBIN 11.7 gm/dL (14.0-18.0); LYMPHOCYTES 26.9 % (24.0-44.0); MCH 33.5 pg (26.0-34.0); MCHC 32.9 g/dL (28.0-37.0); MONOCYTES 10.7 % (1.0-8.0); PLATELET COUNT 195 thou/uL (150-400); POLYS 60.7 % (36.0-66.0); POTASSIUM 4.6 mmol/L (3.5-5.1); RBC 3.48 mil/uL (4.50-6.00); WBC 8.7 thou/uL (4.0-11.0)
[2020-10-11 11:13] VITALS: BP 155/77
[2020-10-11 11:35] LABS: FOLIC ACID 72.2 ng/mL (8.6-58.9)
[2020-10-11 12:21] VITALS: BP 156/79
[2020-10-11 12:53] VITALS: BP 161/88
[2020-10-11 15:06] LABS: APTT 24.7 Seconds (24.5-32.8); PROTIME 10.4 Seconds (9.3-11.4)
--- NOTE | 2020-10-11 15:17 | NUR ---
ASSESSMENT: CM REVIEWED CHART AND SPOKE WITH PT AT THE BEDSIDE. PT IS ALERT AND ORIENTED X4. PT WAS ADMITTED DUE TO INABILITY TO AMBULATE DUE TO LEFT HIP PAIN. [facility] HAS BEEN CONSULTED WELL PAIN MANAGEMENT. PT REPORTS THAT HE LIVES IN A HOME ALONE. PT REPORTS ABOUT 3 STEPS TO ENTER AND ABOUT 12 STEPS WITH HANDRAILS TO HIS BEDROOM. PT HAS A WALKER AT HOME BUT REPORTS HE NORMALLY DOES NOT USE IT. PT STATES HE HAS HAD HH IN THE PAST BUT UNSURE THE AGENCY. PT/OT IS ORDERED BUT EVALS ARE PENDING. [facility] EVALUATED PT AND AWAITING PT/OT EVALS TO SEE IF PT QUALIFIES. CM WILL CONTINUE TO FOLLOW TO ASSIST NEEDED.
--- NOTE | 2020-10-11 16:16 | NUR ---
PATIENT ARRIVED TO ROOM 445 FROM ER AFTER REPORT. V.S 98.6 18 82 161/88 O2 SAT 100%RA. PT ALERT XS 4 NEPHEW IN ROOM HE BROUGHT HIM TO ER. FLUIDS INFUSING ORDERED. ADMISSION IN COMPUTER COMPLETED, LUNCH ORDERED AND SERVED PT HAS HEART HEALTHY DIET. PT STATES HAS LEFT HIP PAIN DOCTOR STATES MAYBE PULLED A MUSCLE. PT STATES NO PAIN AND NO RESP DISTRESS NOTED.
[2020-10-11 16:49] VITALS: BP 149/84
[2020-10-11 19:09] VITALS: BP 161/92
[2020-10-12 01:06] LABS: GLYCOHEMOGLOBIN (HGB A1C) 5.2 % (4.8-5.6)
--- NOTE | 2020-10-12 03:04 | NUR ---
ASSESSED AT START OF SHIFT. PT A&OX4. C/O LEFT HIP PAIN. MED GIVEN SEE EMAR. IV INTACT AND FLUID INFUSING. NITRO GIVENX1 FOR MILD CHEST DISCOMFORT WITH COMPLETE RELIEF. PT 98% ON RA. UP WITH ASSIT TO BSC AND URINAL AT BEDSIDE. FALL PREC IN PLACE AND CALL LIGHT AT REACH WILL CONT TO MONITOR.
[2020-10-12 05:10] VITALS: BP 161/92
[2020-10-12 05:44] LABS: ABSOLUTE NEUTROPHILS 7.4 thou/uL (1.4-8.2); HEMATOCRIT 34.2 % (42.0-52.0); HEMOGLOBIN 11.3 gm/dL (14.0-18.0); LYMPHOCYTES 11.2 % (24.0-44.0); MCH 33.5 pg (26.0-34.0); MCHC 33.2 g/dL (28.0-37.0); MCV 101.1 fL (80.0-100.0); MONOCYTES 9.3 % (1.0-8.0); PLATELET COUNT 190 thou/uL (150-400); POLYS 79.5 % (36.0-66.0); RBC 3.38 mil/uL (4.50-6.00); RDW 14.4 % (10.5-14.5); WBC 9.4 thou/uL (4.0-11.0)
[2020-10-12 06:00] LABS: ALBUMIN 3.4 g/dL (3.4-5.0); CALCIUM 8.9 mg/dL (8.5-10.1); CREATININE 2.8 mg/dL (0.7-1.3); MAGNESIUM 2.1 mg/dL (1.8-2.4); PHOSPHORUS 3.2 mg/dL (2.5-4.9); POTASSIUM 4.8 mmol/L (3.5-5.1)
[2020-10-12 07:28] VITALS: BP 145/79
--- NOTE | 2020-10-12 09:40 | NUR ---
ASSUMED CARE OF PATIENT ALERT XS 4 HAS OT THERAPY THIS MORNING. TOOK AM MEDS ATE BREAKFAST. NO PAIN OR RESP DISTRESS. GIVEN FLU VACCINE TO LEFT ARM. PT PLEASANT AND COOPERATIVE WITH CARE.
--- NOTE | 2020-10-12 14:21 | NUR ---
[facility] rehab following. PT/OT evals pending. Ortho and pain mgnt consults are also pending. Possible rehab candidate pending additional imput from the care team. Will follow.
[2020-10-12 15:39] VITALS: BP 134/71
--- NOTE | 2020-10-12 19:35 | NUR ---
SPOKE WITH DR CARBAJAL HE WILL PUT ORDER IN FOR DR ANNIE GUERRA PAIN MANAGEMENT ON 10/13/20. [employer] SAW PATIENT IN ER. DR GUERRERO SAW PATIENT WILL ACCEPT IF INSURANCE OKAYS. PT WITH NO PAIN TODAY WORKED WITH THERAPY. [facility] [facility].
[2020-10-12 19:40] VITALS: BP 100/73
--- NOTE | 2020-10-13 03:10 | NUR ---
ASSUMED PT CARE AT SHIFT CHANGE. PT IS A&OX4 AND PLEASANT. PT HAS A LEFT HAND SALINE LOCKED AND PATENT. PT TAKES MEDICATION WHOLE. PT IS ON ROOM AIR. PT IS A SBA TO THE RR. PT COMPLAINS OF PAIN WITH THE LEFT HIP. PT IS WAITING TO SEE IF HE IS GOING TO GET APPROVED FOR REHAB. AMERICO (DAY RN) SAID THAT SHE ORDERED HIM JANIE HOSE AND A HEATING PAD WHICH HE NEVER RECEIVED. HOURLY ROUNDING DONE. WILL COTNINUE TO MONITOR PT.
[2020-10-13 03:55] VITALS: BP 146/80
[2020-10-13 06:13] LABS: ALBUMIN 3.1 g/dL (3.4-5.0); CREATININE 2.2 mg/dL (0.7-1.3); PHOSPHORUS 3.1 mg/dL (2.6-4.7); POTASSIUM 3.9 mmol/L (3.5-5.1)
[2020-10-13 07:40] VITALS: BP 166/84
[2020-10-13] MEDS ORDERED: GABAPENTIN 100100 MG PO (08:15)
[2020-10-13] MEDS ORDERED: HYDROCODON-ACE1 EAC7 PO (08:15)
--- NOTE | 2020-10-13 08:21 | H ---
[facility] [place] [address] [address] [address] HISTORY AND PHYSICAL Name: ADILSON WALTERS Room #: 445-P [facility] IN .R.#: [id number] Admission: 10/11/20 Attend Phys: Omer Hendrix DO Discharge: Date of : 41 Report #: [id number] THIS REPORT FOR: cc: Omer Hendrix,Omer Cummings,Omer Pepe DO ~ DATE OF SERVICE: 10/11/2020 HISTORY OF PRESENT ILLNESS: This 80-year-old black male was admitted through the Emergency Room with history that he awakened early this morning with severe pain in his left low back radiating down the front of his left thigh to the knee. He said he had changed his bed sheets last evening, but was doing fairly well until he suddenly turned to the left this morning, and he had sudden severe pain. He was unable to stand up straight or walk. His nephew came over and drove him to the hospital. He says he had not been having much pain in his hips or his back recently. Denies fever, chills, cough, rash, dysuria, diarrhea, nausea or vomiting. 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 Left total hip replacement by Dr. Brandt Bruce. restless leg syndrome. MEDICATIONS ON ADMISSION: Aspirin 81 mg daily, isosorbide mononitrate 10 mg b.i.d., metoprolol succinate ER 50 mg daily, Azelastine nasal spray as needed, nitroglycerin sublingual p.r.n. chest pain and alendronate 70 mg weekly, tramadol 50 mg q. 6 hours p.r.n. pain, ropinirole 0.25 mg at bedtime for restless legs, doxazosin 8 mg at bedtime, atorvastatin 20 mg daily, clonidine 0.1 mg t.i.d., omeprazole 20 mg daily, citalopram 10 mg daily, paricalcitol 1 mcg daily, bumetanide 1 mg daily. ALLERGIES: None. SYSTEM REVIEW: He lives alone. 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 I have not seen him for almost a year. He has not gione out much due to the Covid epidemic. He says he uses nitroglycerin approximately twice a week for chest pain at rest, which is resolved immediately. He has not seen Dr. Lea of Cardiology for many months, nor his outpatient admitting clerk. PHYSICAL EXAMINATION: GENERAL: Pleasant, alert black male who recognized me immediately. VITAL SIGNS: BP 161/88, pulse 82, respirations 18, temperature afebrile. [address] [address] HISTORY AND PHYSICAL Name: ADILSON WALTERS Room #: 445-P [facility] IN M.R.#: [id number] Admission: 10/11/20 Attend Phys: Omer Hendrix DO Discharge: Date of : 41 Report #: [id number] HEAD: No rash or trauma. EARS, NOSE, AND THROAT: No oral lesions. No thrush. Teeth are in good condition. NECK: Bilateral carotid bruits. LUNGS: Clear. Cough is dry. HEART: Rhythm regular with a grade 2 systolic murmur. ABDOMEN: Soft, without masses, tenderness or guarding. EXTREMITIES: 1+ ankle and pedal edema. No cyanosis or cellulitis. NEUROLOGIC: He is alert and well oriented. He is an accurate historian. Straight leg raise is somewhat positive on the left. Left hip range of motion is decreased, but not painful. Right hip range of motion normal in right hip. Right leg straight leg raise negative. Babinski's are absent. Motor strength seems equal in both legs in bed. LABORATORY DATA: Hemoglobin 11.7 grams, white count 8700, MCV 102. Sodium 139, potassium 4.6. Platelets 195,000. CO2 of 22, BUN 33, creatinine 3.3, estimated GFR 22, glucose 96, calcium 10, vitamin B of 2600. Folate 72. Thyroid normal. IMAGING DATA: Lumbar spine CAT scan shows multilevel disk space narrowing, disk bulging at several levels, severe bilateral facet arthrosis. CAT scan of the hip shows previous left hip arthroplasty, extensive vascular calcifications and colonic diverticulosis. IMPRESSION: 1. Acute left lower back pain and left hip pain with radiculopathy down the anterior left thigh. 2. Lumbar degenerative disk disease, severe. 3. Chronic kidney disease stage 4. 4. Coronary artery disease with stable angina. 5. Hypertension. 6. Diabetes mellitus type 2, treated with diet. 7. Restless leg syndrome. 8. Hyperlipidemia. 9. Carotid vascular disease 10. Cervical degenerative arthritis PLAN: Hospitalize for pain control, orthopedic and pain management evaluations, monitor cardiac and renal function closely. We will need PT and OT for mobilization. PROGNOSIS: Guarded. <ELECTRONICALLY SIGNED> By: Omer Hendrix DO 10/13/20 0821 [id number] Omer Hendrix DO /nt
--- NOTE | 2020-10-13 14:03 | NUR ---
cm reviewed chart and spoke with patient. PLANS ARE FOR PATIENT TO GO TO [facility] TODAY. [facility] REQUIRES A NEGATIVE COVID TEST PRIOR TO ADMISSION. PT REFUSING A COVID TEST AT THIS TIME STATING HE HAS BAD SINUSES. CM DISCUSSED THIS IS A REQUIREMENT FOR [facility]. BEDSIDE RN SPOKE WITH PT AND PT IS NOW AGREEABLE WITH COVID TEST. CM NOTIFIED LIASON ON 5[facility]. SHE REPORTS PENDING WHEN THE RESULTS ARE BACK THEY MAY BE ABLE TO ADMIT PT THIS EVENING VS TOMORROW BUT WILL LET CM KNOW. CM NOTIFIED BEDSIDE RN. CM WILL CONTINUE TO FOLLOW.
--- NOTE | 2020-10-13 14:28 | NUR ---
Assumed care of pt at 0700. Pt a&ox4. Pt went to pain clinic today. Accepted to rehab unit but refused covid test which is required to go to [facility]. Provider notified. Provider convinced pt to have covid swab done. Pain controlled with prn pain meds. Call light within reach. Will continue to monitor.
[2020-10-13 15:16] VITALS: BP 147/85
[2020-10-13 19:23] VITALS: BP 145/83
--- NOTE | 2020-10-13 21:17 | NUR ---
DR OWEN CALLED THIS NURSE STATED WILL SEE PT IN THE AM AND TO LEAVE PT ON THE UNIT TONIGHT.
[2020-10-14 04:13] VITALS: BP 150/90
[2020-10-14 06:09] LABS: CALCIUM 9.2 mg/dL (8.5-10.1); CREATININE 2.2 mg/dL (0.7-1.3); POTASSIUM 4.2 mmol/L (3.5-5.1)
[2020-10-14 07:15] VITALS: BP 170/96
[2020-10-14] MEDS ORDERED: NORVASC 2.5 MG2.5 M1 PO (08:03)
[2020-10-14 08:41] VITALS: BP 170/96
--- NOTE | 2020-10-14 09:01 | NUR ---
Assumed care of pt at 0700. Pt a&ox4. Prn pain meds administered per pt request. Covid neg. Pt will transfer to 5N this am. Will call and give report to 5N RN. Fall precautions in place.
--- NOTE | 2020-10-14 13:59 | NUR ---
PTS NEGATIVE COVID TEST IS BACK AND [facility] CAN ACCEPT HIM. PT WAS TRANSFERRED TO 5N TODAY. CASE CLOSED.
--- NOTE | 2020-10-16 08:11 | D ---
[facility] [place] [address] DISCHARGE SUMMARY Name: ADILSON WALTERS Room #: 445-P [facility] IN M.R.#: [id number] Admission: 10/11/20 Attend Phys: Omer Hendrix DO Discharge: 10/14/20 Date of : 41 Report #: [id number] THIS REPORT FOR: cc: Omer Hendrix,Omer Cummings,Omer Pepe DO ~ DATE OF SERVICE: 10/14/2020 HOSPITAL COURSE: This 80-year-old black male was admitted with severe pain in his low back radiating down his left leg to his knee. He had changed his sheets the night before and morning when he turned to the left, he suddenly felt severe pain. PAST MEDICAL HISTORY: Included previous lumbar radiculopathy treated with epidural blocks and lumbar disk surgery. He has had coronary artery disease with stable angina, chronic kidney disease stage 4, hypertension, cardiovascular disease, left carotid endarterectomy, cervical laminectomy, rheumatoid and degenerative arthritis, left total hip replacement, restless leg syndrome, previous alcoholism. HOSPITAL COURSE: INITIAL PHYSICAL EXAMINATION: GENERAL: Very extremely uncomfortable black male. He could not straighten up. He could not get out of bed or walk. VITAL SIGNS: His blood pressure was slightly high, was afebrile. HEAD AND NECK: Revealed bilateral carotid bruits. LUNGS: Clear. CARDIAC: Regular, grade 2 systolic murmur. ABDOMEN: Soft, nontender. EXTREMITIES: Had 1+ pedal edema. NEUROLOGIC: Straight leg raise was negative. Range of motion of the left hip was slightly decreased. Babinski's were absent. Motor strength seemed equal to me. LABORATORY DATA: CAT scan of the lumbar spine showed multilevel disk space narrowing and disk bulging at several levels with severe bilateral facet arthrosis. Left hip x-ray showed vascular calcifications and colonic diverticulosis and previous left hip arthroplasty. Hemoglobin is 11.7, white count 8700. Electrolytes normal at 133, creatinine 3.3, estimated GFR 22. On admission, blood sugar 96, calcium 10.0. Folic acid, thyroid, and vitamin B12 normal. The patient was admitted, seen in consult by Dr. Lu's orthopedic group who felt his pain was lumbar radiculopathy and not hip pain. Nephrology saw the patient and felt the patient had stable chronic kidney disease stage 4 with acute kidney injury, resolved. Recommended continuing current regime. He was [address] [address] DISCHARGE SUMMARY Name: ADILSON WALTERS Room #: 445-P [facility] IN [facility]#: [id number] Admission: 10/11/20 Attend Phys: Omer Hendrix DO Discharge: 10/14/20 Date of : 41 Report #: [id number] Kaveh Valencia of pain management, who performed a lumbar epidural block at L3-L4 interspace. The patient tolerated the procedure well. In fact, his left leg pain improved; however, then he started complaining of pain down his right leg. He was able to ambulate with a walker with assistance and was transferring better. On 10/14/2020, his electrolytes were normal. BUN 46, creatinine 2.2, estimated GFR had risen to 35, blood sugar 128, hemoglobin 11.3, COVID-19 PCR was negative. He was transferred to the rehab unit here on amlodipine 10 mg daily, nitroglycerin sublingual p.r.n. chest pain, doxazosin 8 mg at bedtime, clonidine 0.1 mg t.i.d., ropinirole 0.25 mg at bedtime, paricalcitol 1 mcg at bedtime, vitamin C 500 mg daily, atorvastatin 40 mg daily, fish oil 1000 mg daily, multivitamin with Lutein daily, pyridoxine 25 mg daily, famotidine 20 mg p.r.n., Bumex 0.25 mg daily, metoprolol tartrate 50 mg daily, citalopram 10 mg daily, isosorbide mononitrate 60 mg daily, and methocarbamol 500 mg t.i.d. p.r.n. back pain. FINAL DIAGNOSES: 1. Acute left lumbar radiculopathy secondary to severe lumbar degenerative disk disease. 2. Right lumbar radiculopathy. 3. Acute kidney injury. 4. Chronic kidney disease stage 4. 5. Hypertension. 6. Coronary artery disease with stable angina. 7. Carotid vascular disease. 8. Rheumatoid and degenerative arthritis. 9. Mixed hyperlipidemia. <ELECTRONICALLY SIGNED> By: Omer Hendrix DO 10/16/20 [id number] Omer Hendrix DO /nt
== END 2020-10-14 10:00 | DRG 552 ==
LOC: ER 05:05 → 4S 08:06 → EROBS 08:06 → 4S 12:37
PROVIDERS: Emergency Medicine; Nurse Practitioner; ADMIT Internal Medicine; ATTEND Internal Medicine
PROC: 3E0R33Z Introduction of Anti-inflammatory into Spinal Canal, Percutaneous Approach (ICD-10-PCS; principal; 2020-10-13)
DX: M51.16 Intervertebral disc disorders with radiculopathy, lumbar region (principal); N17.9 Acute kidney failure, unspecified; N18.4 Chronic kidney disease, stage 4 (severe); I25.110 Atherosclerotic heart disease of native coronary artery with unstable angina pectoris; M48.061 Spinal stenosis, lumbar region without neurogenic claudication; E11.22 Type 2 diabetes mellitus with diabetic chronic kidney disease; Z20.822 Contact with and (suspected) exposure to COVID-19; Z96.642 Presence of left artificial hip joint; I25.10 Atherosclerotic heart disease of native coronary artery without angina pectoris; M06.9 Rheumatoid arthritis, unspecified; M19.90 Unspecified osteoarthritis, unspecified site; G25.81 Restless legs syndrome; I12.9 Hypertensive chronic kidney disease with stage 1 through stage 4 chronic kidney disease, or unspecified chronic kidney disease; E78.2 Mixed hyperlipidemia; I65.29 Occlusion and stenosis of unspecified carotid artery; E78.5 Hyperlipidemia, unspecified; M47.892 Other spondylosis, cervical region; Z79.82 Long term (current) use of aspirin; Z79.899 Other long term (current) drug therapy; Z23 Encounter for immunization
CPT/HCPCS: 10195

== ENCOUNTER 2020-10-13 14:14 | Inpatient (IN) | payer OTHER ==
[~2020-10-13] VITALS: Ht 165.1 cm; Wt 147.0 kg
--- NOTE | ~2020-10-13 | PLAN ---
[facility] [place] [address] [address] [place] [address] REHAB UNIT PLAN OF CARE Name: ADILSON WALTERS Room #: 509-P [facility] IN M.R.#: [id number] Admission: 10/14/20 Attend Phys: Joseph Gabriel MD Discharge: Date of : 41 Report #: [id number] THIS REPORT FOR: cc: Omer Hendrix Donald L. DO Smithson,Joseph Anderson MD ~ DATE OF SERVICE: 10/17/2020 PROGRESS NOTE AND OVERALL PLAN OF CARE SUBJECTIVE: The patient is seen back today in followup. He notes that the left-sided radicular pain was improved post the epidural steroid injection, but now he has significant right lower extremity pain complaints. He has generalized lumbar pain and then pain down his right lower extremity medial and anteriorly to above the knee. He is having significant distress with this. Discussed with Dr. Hendrix. An MRI has been ordered and Dr. Kaveh Valencia has been notified and followup. From a functional perspective, the patient had been transferring with contact guard assistance with gait min assist 150 feet with a front-wheeled walker with lower extremity dressing, mod assist. He is otherwise in no distress today. Temperature 37.4, pulse 65, respirations 20, blood pressure 146/78. He does again have the significant pain as noted above. No focal calf swelling. He has difficulty getting comfortable except with the head elevated and the legs flexed. When he does get up, he notes that he will walk stooped over. ASSESSMENT: 1. Right lumbar radiculopathy. MRI of the lumbosacral spine ordered. 2. Prior left lumbar radiculopathy, underwent epidural steroid injection on 10/13/2020. 3. Chronic kidney disease stage 4. 4. Hypertension. 5. History of vascular disease. 6. History of left total hip arthroplasty. PLAN: MRI of the lumbosacral spine is currently pending. Please see the above. The overall plan of care is based on the preadmission screen and information garnered from therapy assessments. 1. Estimated length of stay is probably 10-14 days. 2. Medical prognosis is reasonably good. 3. Anticipated interventions includes the interdisciplinary acute inpatient rehabilitation program. 4. Anticipated functional outcomes would be for the patient to become modified independent with transfers, mobility, ADLs, so that he can hopefully return back [address] [address] REHAB UNIT PLAN OF CARE Name: ADILSON WALTERS Room #: 509-P [facility] IN ..#: [id number] Admission: 10/14/20 Attend Phys: Joseph Gabriel MD Discharge: Date of : 41 Report #: [id number] to his prior living situation. 5. Discharge destination would be back living at home alone. 6. Expected therapy by discipline includes PT and OT 1 and 1-1/2 hours per day each five days a week throughout the duration of the acute inpatient rehabilitation stay. The patient's prognosis for significant practical improvement within a reasonable period of time appears good. Given the patient's complex medical condition and risk of further medical complication, rehabilitation services could not be safely provided at the lower level of care such as a senior living facility. By: [id number] Joseph Gabriel MD /nt
--- NOTE | ~2020-10-13 | HC ---
[facility] [place] [address] CONSULTATION Name: ADILSON WALTERS Room #: 509-P [facility] IN ..#: [id number] Admission: 10/14/20 Attend Phys: Joseph Gabriel MD Discharge: Date of : 42 Report #: [id number] THIS REPORT FOR: cc: Omer Hendrix Donald L. DO Deutch, Neal B. PhD ~ DATE OF SERVICE: 10/15/2020 NEUROLOGICAL CONSULTATION ATTENDING PHYSICIAN: Joseph Gabriel MD LOCAL SALES ASSOCIATE: Hao Arevalo, PhD CLINICAL PRESENTATION: The patient is a 80-year-old -Malagasy male admitted to [facility] for a comprehensive inpatient rehabilitation program to include inability to ambulate. He apparently was changing the bed sheets and bent over when he sustained low back pain on the left, radiating into his thigh, interfering with his ability to ambulate. The patient was seen in the Pain Clinic and given epidural injection. His assessment on admission to the rehab unit is lumbar radiculopathy with lower extremity weakness, status post epidural injection, lumbar spinal stenosis with acute lumbar spasm, chronic kidney disease stage 4, hypertension, history of vascular disease, history of left total hip arthroplasty and degenerative arthritis. A complete description of his medical condition and history can be found in his medical record. Neuropsychological consultation was requested to provide assistance in the assessment of cognitive and emotional status and to provide recommendations and services. The patient is reported to have a history of heavy drinking that included alcohol associated seizures. He reports living by himself. He has 6 biological and 2 step-children. The patient reports having been independent with basic and instrumental activities of daily living. 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 The patient's is . He reports having lost several family members including his son from a heart attack along with two nephews within the last couple of years. He indicates having been independent with basic and instrumental activities of daily living. The patient does not report any current alcohol or cannabis use. TECHNIQUES UTILIZED: Clinical interview, review of medical records, staff consultation and behavioral observation, mini mental status exam 2 standard version and clock drawing. EXAMINATION FINDINGS: The patient was alert and cooperative with the assessment. He accurately described the reason for his hospitalization. There [address] [address] CONSULTATION Name: ADILSON WALTERS Room #: 509-P [facility] IN [facility].#: [id number] Admission: 10/14/20 Attend Phys: Joseph Gabriel MD Discharge: Date of : 41 Report #: [id number] is no evidence of aphasia. His thoughts are logical and goal oriented. There is no evidence of thought disorder. He denies a prior history of treatment for depression. He indicates his mood has been depressed along with increased anxiety currently. Difficulty with memory is also reported. He does not report difficulty with sleep, poor appetite. As indicated earlier remote history of alcohol abuse. He reported to the extent of alcohol-related seizure activity. His performance on the MMSE 2 brief version is within normal limits with a raw score 16 of 16. His performance on the MMSE 2 standard version is within normal limits with a raw score 30 of 30. The patient did have difficulty with visual spatial construction. He was unable to draw a clock or set the hands at a designated time. Impaired visual spatial construction is suggested. DIAGNOSTIC IMPRESSION: 1. Alcohol use disorder -- persistent abstinence. 2. Unspecified depressive disorder with anxiety. 3. 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 RECOMMENDATIONS: The patient may benefit from a followup neuropsychological evaluation to clarify cognitive status. While he is alert and oriented, deficits in visual spatial construction are suggested. He has history of severe alcohol abuse and seizure related to alcohol activity also could have an impact on cognitive functioning. Although he does indicate being free of alcohol use, currently. The patient has had a left carotid endarterectomy because of vascular disease. Cognitive deficits may be associated with vascular function. Thank you very much for allowing me to provide the consultation on this patient. By: 38 [id number] Hao Arevalo, PhD /nt
--- NOTE | ~2020-10-13 | H ---
[facility] [place] [address] HISTORY AND PHYSICAL Name: ADILSON WALTERS Room #: 509-P ADM IN M.R.#: [id number] Admission: 10/14/20 Attend Phys: Joseph Gabriel MD Discharge: Date of : 41 Report #: [id number] THIS REPORT FOR: cc: Omer Hendrix Donald L. DO Smithson,Joseph Anderson MD ~ DATE OF SERVICE: 10/14/2020 HISTORY OF PRESENT ILLNESS: The patient is a 80-year-old -Guamanian male who originally was admitted to [facility] on 10/11/2020 with low back pain, on the left, radiating into his thigh with inability to ambulate. He apparently was changing bed sheets and bent over when it occurred. CT of the left lower extremity showed no acute fracture, intact left total hip arthroplasty. He was seen by the pain clinic doctor by Dr. Chapman on 10/13/2020 and had an epidural injection. He is noted to be cleared for "exercising" and he has been admitted for acute in-hospital inpatient rehabilitation. Please see the full documentation. Agree with the documentation as noted. Please see the prior medical history, social history, allergies, problem list as noted. ALLERGIES: As noted. MEDICATIONS: See the MAR. REVIEW OF SYSTEMS: See the 14-point system review. No chest pain, shortness of breath, or abdominal discomfort. He notes the back pain is overall improved ____ the injection and has been able to get up and move some. PHYSICAL EXAMINATION: GENERAL: He is a pleasant 80-year-old -Guamanian male in no obvious distress. VITAL SIGNS: Last recorded blood pressure 136/71, pulse 75, temperature not recorded at the time of admission. Alert, oriented, pleasant, in good spirits. He is on room air. HEENT: Appeared to be benign. NECK: No lymphadenopathy. CHEST: Sounded clear to auscultation, may have some decreased at the bases. CARDIOVASCULAR: Regular rate and rhythm. ABDOMEN: Bowel sounds positive, nontender. GENITOURINARY AND RECTAL: Deferred. EXTREMITIES: He has functional range of motion of both upper extremities. Strength is a grade 4+/5. His lower extremities, he has some decreased hip range of motion, limited by pain. Some discomfort with attempted straight leg raising. I would grade his strength at probably a 4-/5 bilaterally. No distal edema except for trace ankle edema. No calf swelling. He has been min assist to stand and has been able to ambulate a short distance [place] [address] HISTORY AND PHYSICAL Name: ADILSON WALTERS Terrell Room #: 509-P [facility].#: [id number] Admission: 10/14/20 Attend Phys: Joseph Gabriel MD Discharge: Date of : 41 Report #: [id number] walker. ASSESSMENT: 1. Lumbar radiculopathy with lower extremity weakness, status post epidural injection on 10/13/2020. 2. Lumbar spinal stenosis with lumbar acute spasm. 3. Chronic kidney disease stage 4. 4. Hypertension. 5. History of vascular disease. 6. History of left total hip arthroplasty. 7. Degenerative arthritis. PLAN: The patient has been admitted for acute in-hospital inpatient rehabilitation. Please see the previous and current functional status. See the documentation and agree with that which is noted. The goal is to maximize his functional independence, so he can hopefully return back to his prior living situation and become modified independent with transfers, mobility and ADLs and to further improve as far as his pain issues. The patient meets diagnostic criteria for an acute in-hospital inpatient rehabilitation stay. He meets the medical necessity criteria and we will have the sec reporting consultant physicians continue to follow. He does have the tolerance for therapies and has appropriate discharge goals back to the home setting. By: [id number] Joseph Gabriel MD /nt
[~2020-10-13 14:14] MED LIST changes: +GABAPENTIN 100100 MG PO; +HYDROCODON-ACE1 EAC7 PO
[2020-10-14] MEDS ORDERED: NORVASC 2.5 MG2.5 M1 PO (08:03)
--- NOTE | 2020-10-14 10:37 | NUR ---
PT. ADMITTED TO ROOM 509 AT 0950. PT. ARRIVED IN W/C, HE STATES HE WOKE UP ONE DAY LAST WEEK IN INTENSE PAIN IN HIS BACK. HE CAME TO THE HOSPITAL. HE RECEIVED PAIN SHOT (EPIDURAL) IN HIS BACK AT THE PAIN CLINIC YESTERDAY. HE STATES THE PAIN IN HIS SIATIC NERVE WENT FROM THE LEFT SIDE TO THE RIGHT SIDE. HE STATES HIS PAIN IN THE BACK IS A 9 NOW AND HE WANTS A PAIN MEDICATION. HE IS ALERT AND ORIENTED X4.
[2020-10-14 13:35] VITALS: BP 165/80
--- NOTE | 2020-10-14 14:01 | NUR ---
ASSESSMENT: CM REVIEWED CHART AND SPOKE WITH PT AT THE BEDSIDE. PT WAS ADMITTED TO [facility] ACUTE REHAB FROM 4S TODAY. PT WAS ADMITTED TO ACUTE UNIT DUE TO INABILITY TO AMBULATE DUE TO LEFT HIP PAIN. PT REPORTS THAT HE LIVES IN A HOME ALONE. PT REPORTS ABOUT 3 STEPS TO ENTER AND ABOUT 11-12 STEPS WITH HANDRAILS TO HIS BEDROOM. PT HAS A WALKER AT HOME BUT REPORTS HE NORMALLY DOES NOT USE IT. PT STATES HE HAS HAD HH IN THE PAST BUT UNSURE THE AGENCY. PT HAS SUPPORTIVE FAMILY/CHILDREN THAT CAN HELP HIM NEEDED. PT REPORTS HE IS READY TO WORK WITH REHAB TO GET STRONG TO RETURN HOME. CM WILL CONTINUE TO FOLLOW TO ASSIST NEEDED.
[2020-10-14 20:00] VITALS: BP 142/68
--- NOTE | 2020-10-15 04:11 | NUR ---
assumed care approx 1900 evening 10/14. pt alert and oriented x4, appropriate and cooperative. pt took hs meds with water tolerating well. pt appears to be sleeping soundly with hourly rounding checks. bed alarm on and call light in reach. will continue to monitor.
[2020-10-15 06:10] VITALS: BP 156/88
[2020-10-15 06:19] LABS: HEMATOCRIT 34.4 % (42.0-52.0); HEMOGLOBIN 11.2 gm/dL (14.0-18.0); MCH 33.2 pg (26.0-34.0); MCHC 32.7 g/dL (28.0-37.0); MCV 101.5 fL (80.0-100.0); RBC 3.39 mil/uL (4.50-6.00); RDW 14.1 % (10.5-14.5); WBC 8.5 thou/uL (4.0-11.0)
[2020-10-15 06:49] LABS: CALCIUM 8.8 mg/dL (8.5-10.1); CREATININE 2.2 mg/dL (0.7-1.3); POTASSIUM 4.8 mmol/L (3.5-5.1)
[2020-10-15 07:20] VITALS: BP 133/77
--- NOTE | 2020-10-15 10:55 | NUR ---
ASSUMED CARE AT 0700. PT SLEPT FAIRLY WELL. PAIN IS MANAGEABLE BUT STILL REPORTS PAIN BETWEEN 7-8 AFTER PAIN MEDS. REPORTS SHOOTING PAIN IN R LE, DENIES ANY NUMBNESS OR TINGLING. LIDOCAINE PATCH APPLIED TO R LOWER BACK. UP WITH SBA, PARTICIPATIES IN THERAPY. APPETITE GOOD, TOLERATES MEDS WITH WATER. CALL LIGHT WITHIN REACH, CONT TO MONITOR.
[2020-10-15 19:12] VITALS: BP 145/76
--- NOTE | 2020-10-16 02:38 | NUR ---
assumed care approx 1900 evening 10/15. pt pleasant and cooperative. pt c/o back and leg pain and given pain meds as ordered. pt took hs meds with water tolerating well. pt appears to be sleeping soundly with hourly rounding. bed alarm on and call light in reach. will continue to monitor.
[2020-10-16 05:40] LABS: CALCIUM 8.4 mg/dL (8.5-10.1); CREATININE 2.2 mg/dL (0.7-1.3); POTASSIUM 4.8 mmol/L (3.5-5.1)
--- NOTE | 2020-10-16 10:29 | NUR ---
ASSUMED CARE AT 0700. SLEPT FAIRLY WELL. PT IS STABLE AND MANAGEABLE WITH NORCO, ZHANNA METHYLPREDNISONE AND LIDOCAINE. ALERT AND ORIENTATED, ON ROOM AIR, UP WITH SBA. HAD A SMALL BM TODAY. APPETITE GOOD. DENIES ANY CHEST PAIN OR SHORT OF AIR. DIURESING ADEQUATELY. SEEN BY DR CARBAJAL, CONT WITH STEROIDS AND DC GABAPENTIN. CONT TO MONITOR.
[2020-10-16 13:58] VITALS: BP 152/84
[2020-10-16 19:09] VITALS: BP 119/56
--- NOTE | 2020-10-16 23:22 | NUR ---
PATIENT HAS BEEN IN BED ALL EVENING AND ON HIS CELL PHONE. HE TOOK HIS MEDS WHOLE WITH WATER. HE STATES HE IS GOING TO SPEAK WITH DR CARBAJAL TOMORROW AND SEE IF HE CAN START ON TRAMADOL FOR PAIN. HIS PAIN IS WELL CONTROLLED TONIGHT AND AT A 2.LIDOCAINE PATCH REMOVED FROM RIGHT LOWER BACK. PATIENT'S LISINOPRIL AND DOXAZOSIN WAS HELD TONIGHT PER DR CARBAJAL D/T BP 119/56 AND PULSE 60. PATIENT IS A/0X4 AND A STANDBY ASSIST ON TRANSFERS. BED IN LOW POSITION AND BED ALARM IS ON. PT REFUSED SCD HOSE TONIGHT. CONTINUING TO MONITOR.
[2020-10-17 07:15] VITALS: BP 145/78
[2020-10-17 07:32] VITALS: BP 145/78
--- NOTE | 2020-10-17 18:00 | NUR ---
PT C/O PAIN IN LOWER BACK TODAY AND WAS MEDICATED TWICE WITH HYDROCODONE WITH ADEQUATE EFFECT. PT TO MRI THIS AFTERNOON, AND REPORTED THAT THIS WAS PAINFUL WELL. PT IS ABLE TO AMBULATE TO THE BR WITH THE WALKER, AND WAS ABLE TO MANAGE OWN TOILETING WITH BOWEL MOVEMENT.
[2020-10-17 19:23] VITALS: BP 135/58
--- NOTE | 2020-10-18 00:36 | NUR ---
PATIENT HAS BEEN IN BED RESTING ALL SHIFT. HE HAS BEEN ON HIS CELL PHONE TONIGHT. HE HAS BEEN CALM AND COOPERATIVE. HYDROCODONE PRN GIVEN AT 2030 FOR LOW BACK/RIGHT HIP DISCOMFORT 6/10. PAIN WAS RELIEVED AND WAS DOWN TO 2/10 WITHIN THE HOUR. PATIENT IS UP TO SIDE OF BED TO USE URINAL FOR VOIDING. PATIENT HAD LARGE BM THIS EVENING. PATIENT HAS NOT TRANSFERRED FROM BED [facility] SO FAR. HE IS RESTING COMFORTABLY WITH EYES CLOSED. LIDOCAINE PATCH REMOVED FROM LOWER BACK AT 0830 TONIGHT. ROUTINE ROUNDS TO ASSESS SAFETY AND STATUS OF PATIENT. HE IS A/0X4. BED IN LOW POSITION AND BED ALARM IS ON. CONTINUING TO MONITOR.
[2020-10-18 07:15] VITALS: BP 127/65
--- NOTE | 2020-10-18 14:59 | NUR ---
Cm rec'd request for tx to [facility] surgery eval possible spinal cord compression. Request initiated through the [facility] [place] RN [phone] and community engagement manager faxed the face sheet and clinical update. Call back rec'd from the tx rn that the pt has been accepted under Dr. Hendrix as the admitting and he has spouse with neurosx Dr. Deluna. Bed not available at this time. They will call the unit back once a bed opens up. Pt and unit RN updated. Pt aware and notes he has spoken with Dr. Hendrix. He will update his family. Dc time frame hindges on bed availability. Chart copy, transfer form and [facility] form is on the chart and ready once a bed assignment is confirmed and report given. Unit Rn updated along with the care team. All parties anticipating transfer later today or tonight. The pt is aware that this can take a day or so depending on a bed openning. Will follow.
--- NOTE | 2020-10-18 19:13 | NUR ---
Alert and orientated X4. Calm, cooperative and compliant. Reported no pain this am but after initial therapy session pain increased to 7-8. Medicated with prn and scheduled meds. Breath sounds clear. Irregular HR auscultated. Color pink with brisk capillary refill and palpable peripheral pulses. Edema in lower legs, +1 non pitting. Voided X 1 today, yellow urine. Active bowel sounds over soft, rounded abdomen. Very slow gait with walker. Sat most of day on side of bed. Ate 100% of meals. COVID done before lunch in preparation of transfer for surgery, came back positive late in afternoon. Dr. Hendrix notified, consulted with Dr. Ashraf. Plan on transfer to [facility] or [facility] once bed is available. Placed in isolation once COVID back positive.
[2020-10-18 20:10] VITALS: BP 144/77
[2020-10-18 23:04] VITALS: BP 144/77
--- NOTE | 2020-10-18 23:22 | NUR ---
CALLED ADITHYA @2023 WAS TOLD WOULD GET A CALL BACK. THIS NURSE CALLED AGAIN AND TRANSFER NURSE STATED BED IS NOT AVAILABLE FOR TONIGHT TO CHECK BACK TOMORROW. HOUSE [facility] NOTIFIED, PT TO TRANSFER TO [facility] ROOM 354. DR CARBAJAL ALSO NOTIFIED. HYDROCODONE GIVEN TO PT FOR PAIN. PT UP WITH SBA TO THE BATHROOM. HAD A HUGE BM AT START OF SHIFT.
[2020-10-19] MEDS ORDERED: TYLENOL EXTRA500 MG PO (05:26)
[2020-10-19] MEDS ORDERED: BUMEX2 MG PO (05:27)
[2020-10-19] MEDS ORDERED: GAS-X180 MG PO (05:30)
[2020-10-19] MEDS ORDERED: NEURONTIN 400400 M1 PO (07:53)
[2020-10-19] MEDS ORDERED: PEPCID20 MG PO (07:53)
== END 2020-10-18 23:55 | disposition short-term general hospital (02) | DRG 551 ==
PROVIDERS: Internal Medicine; Nurse Practitioner Family; ADMIT Physical Medicine & Rehabilitation; ATTEND Physical Medicine & Rehabilitation
DX: M51.16 Intervertebral disc disorders with radiculopathy, lumbar region (principal); U07.1 COVID-19; N18.4 Chronic kidney disease, stage 4 (severe); I12.9 Hypertensive chronic kidney disease with stage 1 through stage 4 chronic kidney disease, or unspecified chronic kidney disease; M48.061 Spinal stenosis, lumbar region without neurogenic claudication; F41.8 Other specified anxiety disorders; G31.84 Mild cognitive impairment of uncertain or unknown etiology; M19.90 Unspecified osteoarthritis, unspecified site; E78.5 Hyperlipidemia, unspecified; G89.29 Other chronic pain; I25.118 Atherosclerotic heart disease of native coronary artery with other forms of angina pectoris; D64.9 Anemia, unspecified; E11.22 Type 2 diabetes mellitus with diabetic chronic kidney disease; M06.9 Rheumatoid arthritis, unspecified; G25.81 Restless legs syndrome; Z96.642 Presence of left artificial hip joint; Z79.899 Other long term (current) drug therapy; Z87.891 Personal history of nicotine dependence; Z98.1 Arthrodesis status
CPT/HCPCS: 10112

== ENCOUNTER 2020-10-18 22:35 | Inpatient (IN) | payer OTHER ==
[~2020-10-18 22:35] MED LIST changes: +NORVASC 2.5 MG2.5 M1 PO
[2020-10-19 00:05] VITALS: BP 145/78
[2020-10-19 04:15] VITALS: BP 168/80
[2020-10-19] MEDS ORDERED: TYLENOL EXTRA500 MG PO (05:26)
[2020-10-19] MEDS ORDERED: BUMEX2 MG PO (05:27)
[2020-10-19] MEDS ORDERED: GAS-X180 MG PO (05:30)
[2020-10-19 05:41] LABS: HEMATOCRIT 33.4 % (42.0-52.0); HEMOGLOBIN 10.8 gm/dL (14.0-18.0); MCH 33.2 pg (26.0-34.0); MCHC 32.3 g/dL (28.0-37.0); MCV 102.7 fL (80.0-100.0); RBC 3.25 mil/uL (4.50-6.00); RDW 14.1 % (10.5-14.5); WBC 9.2 thou/uL (4.0-11.0)
[2020-10-19 06:18] LABS: APTT 22.6 Seconds (24.5-32.8); PROTIME 10.5 Seconds (9.3-11.4)
[2020-10-19 06:28] LABS: ALBUMIN 3.2 g/dL (3.4-5.0); CALCIUM 8.7 mg/dL (8.5-10.1); CREATININE 2.8 mg/dL (0.7-1.3); POTASSIUM 4.6 mmol/L (3.5-5.1); TOTAL BILIRUBIN 0.5 mg/dL (0.2-1.0); TOTAL PROTEIN 6.5 g/dL (6.4-8.2)
[2020-10-19 06:36] LABS: D-DIMER 14.89 ug/mLFEU (0.19-0.50)
[2020-10-19] MEDS ORDERED: PEPCID20 MG PO (07:53)
[2020-10-19] MEDS ORDERED: NEURONTIN 400400 M1 PO (07:53)
--- NOTE | 2020-10-19 07:56 | NUR ---
Arrived from 5N around 2355. Meds verified with pt. Pt. gave verbal consent for tx , falls , medicare rights and etc. Bed alarm on , refused SCD's due to low back /right leg pain. Medicated for pain this am. Ambulated to bathroom with assist x 1 using walker and gait belt. Enhanced precaution , afebrile. Denies any shortness of breath and stated he has no symptoms.
[2020-10-19 08:36] VITALS: BP 143/77
--- NOTE | 2020-10-19 11:07 | NUR ---
INITIAL ASSESSMENT: Received consult. SW reviewed chart and spoke with nursing. Pt was admitted from rehab after having positive COVID test. Process has been started for pt to be transferred to [facility]. Pt with herniated disc and needs surgery. Pt has been accepted by Dr. Hendrix. Dr. Deluna will be consulted for surgery services. JIA placed call to [facility] transfer center and spoke with [facility], who states they have accepted pt and they are waiting for a bed assignment. [facility] transfer center will notify SW or nursing unit when a bed assignment is available. SW is following to assist as needed with hospital transfer.
--- NOTE | 2020-10-19 12:45 | NUR ---
CARE ASSUMED AT 0700, PT ALERT AND OIRENTED X4, DENIES NAUSEA AND VOMITTING. COMPLAINS OF CONTINUOUS SHARP PAIN, 8/10. PAIN MED GIVEN PER ORDER. ON ROOM AIR, NO SIGNS OF DISTRESS OF NOTED. TRANSFER TO [facility] PENDING. UP WITH [address]CAUTIONS IN PL[address]. WILL CONTINUE TO MONITOR.
[2020-10-19 15:34] VITALS: BP 106/55
[2020-10-19 19:27] VITALS: BP 122/67
[2020-10-19 21:30] VITALS: BP 144/63
--- NOTE | 2020-10-20 00:27 | NUR ---
PT ALERT AND ORIENTED X4. VSS AFEBRILE. HS MEDS GIVEN. REPORT GIVEN TO DANIELA AT [facility]. INFORMED HIM PT RECEIVED HIS 2100 AND 2200 MEDS PRIOR TO D/C. VSS AT D/C. BED DOWN. CALL LIGHT IN REACH. NO S/S DISTRESS AT TIME OF DISCHARGE. PT SENT HOME WITH ALL HIS BELONGINGS.
--- NOTE | 2020-10-21 07:37 | H ---
[facility] [place] [address] HISTORY AND PHYSICAL Name: ADILSON WALTERS Room #: 354-P [facility] IN M.R.#: [id number] Admission: 10/19/20 Attend Phys: Omer Hendrix DO Discharge: 10/19/20 Date of : 42 Report #: [id number] THIS REPORT FOR: cc: Omer Hendrix,Omer Cummings,Omer Pepe DO ~ DATE OF SERVICE: 10/19/2020 LOCATION: [facility] HISTORY OF PRESENT ILLNESS: This 80-year-old black male was transferred from the rehab unit here because of a positive COVID-19 screen. The patient had been hospitalized here last week for severe left lumbar radiculopathy which improved with epidural block; however, he then developed severe right lumbar radiculopathy with subsequent workup revealing a herniated disk with extrusion at L2-L3. Neurosurgeon felt the patient definitely needs surgery and the patient's pain is getting worse. The patient had a COVID-19 screen prior to transfer to [facility] where he was to have surgery, and the screening came back positive. The patient denies fever, chills, cough, shortness of breath or exposure to anyone that he knows of with COVID-19. PAST MEDICAL HISTORY: Multiple comorbidities including coronary artery disease with stable angina, followed by Dr. Avelino Lea; 2 previous lumbar disk surgeries; left carotid endarterectomy; hypertension; cervical and rheumatoid arthritis; remote alcoholism with alcohol-related seizures; left total hip replacement; previous cervical laminectomy; and restless leg syndrome. MEDICATIONS ON ADMISSION: Ropinirole 0.25 mg at bedtime, doxazosin 8 mg at bedtime, atorvastatin 40 mg daily, citalopram 10 mg daily, Bumex 1 mg daily, ascorbic acid 500 mg daily, amlodipine 5 mg daily, metoprolol succinate 50 mg daily, gabapentin 400 mg b.i.d., methocarbamol 500 mg t.i.d., clonidine 0.1 mg t.i.d., famotidine 20 mg daily, docusate 100 mg b.i.d., hydrocodone 5/325 one q. 4 hours p.r.n. pain. ALLERGIES: None. SOCIAL HISTORY: The patient is a nonsmoker. Lives alone and his only visitor is his son who he says has not been sick. He has not been going out of the house because of the COVID epidemic. REVIEW OF SYSTEMS: He denies nausea, vomiting, chest pain. His bowels have been moving. His main complaint is severe pain in his right back down his right leg to his anterior thigh. PHYSICAL EXAMINATION: [facility] [address] [place] [address] HISTORY AND PHYSICAL Name: ADILSON WALTERS Room #: 354-P [facility] IN M.R.#: [id number] Admission: 10/19/20 Attend Phys: mOer Hendrix DO Discharge: 10/19/20 Date of : 42 Report #: [id number] GENERAL: An uncomfortable, moaning white male. VITAL SIGNS: BP 168/80, pulse 68, respirations 12, temperature afebrile. HEAD: No rash or trauma. EARS, NOSE, AND THROAT: No lesions. EYES: No icterus. NECK: Supple, with bilateral soft carotid bruits. LUNGS: Clear. Cough is dry. HEART: Rhythm regular without significant murmur. ABDOMEN: Soft, without mass or tenderness or guarding. EXTREMITIES: No edema. MUSCULOSKELETAL: The patient is sitting with his head flexed, with his back flexed and his knees flexed in the bed. He still says his pain is miserable. He has difficulty sitting up or turning over. LABORATORY DATA: His hemoglobin 10.8, MCV 102, white count 9200. Sodium 139, potassium 4.6, CO2 of 21, BUN 70, creatinine 2.8, estimated GFR 27, blood sugar 115, calcium 8.7, GOT elevated at 45, GPT elevated at 114, albumin 3.2. Other liver enzymes normal. His D-dimer is positive at 14.8. Protime INR is 1.0. IMPRESSION: 1. COVID-19 apparently asymptomatic with elevated D-dimer and elevated liver function test. 2. Severe right lumbar radiculopathy from herniated anterior lumbar disk with extrusion at L2-L3. 3. Hypertension. 4. Coronary artery disease with stable angina. 5. Chronic kidney disease stage 4. 6. Cervical degenerative arthritis. 7. Hyperlipidemia. PLAN: As per Dr. Goran Ashraf of Infectious Disease recommendations. The patient needs surgery and fairly urgently. We will await opening of ____ [facility] and discuss the treatment of COVID-19. <ELECTRONICALLY SIGNED> By: Omer Hendrix DO 10/21/20 0737 [id number] Omer Hendrix DO /nt
--- NOTE | 2020-10-22 08:10 | DSS ---
[facility] [place] [address] SHORT STAY SUMMARY Name: ADILSON WALTERS Room #: 354-P [facility] IN M.R.#: [id number] Admission: 10/19/20 Attend Phys: Omer Hendrix DO Discharge: 10/19/20 Date of : 42 Report #: [id number] THIS REPORT FOR: cc: Omer Hendrix,Omer Cummings,Omer Pepe DO ~ DATE OF SERVICE: 10/19/2020 HISTORY OF PRESENT ILLNESS: This is a 80-year-old black male who was admitted on transfer from the rehab unit here because of severe intractable right radicular lumbar pain from a herniated disk at L2-L3. He had initially been admitted to acute care with left lumbar radiculopathy, which resolved after epidural block, but the right-sided symptoms developed and became worse. He was to be transferred to [facility] but his routine PCR screen for Covid 19 was positive, so he was transferred off rehab Unit to Acute Care PAST MEDICAL HISTORY: Included chronic kidney disease stage 3, hypertension, coronary artery disease with stable angina, cervical and degenerative lumbar disk disease, previous cervical laminectomy and two lumbar laminectomies, rheumatoid arthritis of the hands, remote alcoholism with seizures many years ago, left carotid endarterectomy for carotid vascular disease, left total hip replacement by Dr. Brandt Bruce, and restless leg syndrome. PHYSICAL EXAMINATION: GENERAL: Initial physical revealed a very uncomfortable, moaning black male. VITAL SIGNS: BP was high at 168/80. HEAD AND NECK: Negative. LUNGS: Clear. CARDIAC: Revealed no murmur or gallop. ABDOMEN: Soft, nontender. EXTREMITIES: No edema. The patient continually wanting to sit with the head of the bed elevated and his knees flexed as high as possible to relieve his radicular pain. LABORATORY DATA: His COVID-19 screen was positive. D-dimer was elevated at 14, hemoglobin 10.8, white count 9200. Sodium 139, potassium 4.6, CO2 of 21, BUN 70, creatinine 2.8, estimated GFR 27, glucose 115, calcium 8.7, bilirubin 0.5, CO2 45, GPT 114, alkaline phosphatase 105. Albumin low at 3.2, total protein normal. The patient was seen in consult by Dr. Ashraf of [place] who felt that he had no symptoms of COVID-19. The patient had been scheduled for neurosurgery at [facility] and then late at night on 10/19/2020, he was transferred to [facility] on ropinirole 0.25 mg at bedtime, doxazosin 8 mg at bedtime, atorvastatin 40 mg daily, isosorbide mononitrate 60 mg daily, citalopram 10 mg daily, Bumex 0.25 mg daily, ascorbic acid 500 mg b.i.d., [address] [address] SHORT STAY SUMMARY Name: ADILSON WALTERS Room #: 354-P [facility] IN M.R.#: [id number] Admission: 10/19/20 Attend Phys: Omer Hendrix DO Discharge: 10/19/20 Date of : 42 Report #: [id number] amlodipine 5 mg daily, metoprolol succinate 50 mg daily, gabapentin 400 mg b.i.d., methocarbamol 500 mg t.i.d., clonidine 0.1 mg t.i.d., famotidine 20 mg daily, docusate 100 mg daily, hydrocodone 5/325 q. 4 hours p.r.n. pain. He will be on a cardiac and renal diet. Overall prognosis guarded. Isolation measures were followed throughout his stay here. FINAL DIAGNOSIS: 1. Right lumbar radiculopathy due to herniated disk at L2-L3. 2. COVID-19. 3. Chronic kidney disease stage 4. 4. Hypertension. 5. Coronary artery disease with stable angina. 6. Cervical and lumbar degenerative disk disease. 7. Rheumatoid arthritis, seronegative of the hands. 8. Carotid vascular disease. 9. Restless leg syndrome. <ELECTRONICALLY SIGNED> By: Omer Hendrix DO 10/22/20 0810 [id number] Omer Hendrix DO /nt
== END 2020-10-19 21:45 | disposition short-term general hospital (02) | DRG 551 ==
LOC: 3W 22:35
PROVIDERS: ADMIT Internal Medicine; ATTEND Internal Medicine
DX: M51.16 Intervertebral disc disorders with radiculopathy, lumbar region (principal); U07.1 COVID-19; N18.4 Chronic kidney disease, stage 4 (severe); M51.26 Other intervertebral disc displacement, lumbar region; M06.9 Rheumatoid arthritis, unspecified; I25.10 Atherosclerotic heart disease of native coronary artery without angina pectoris; Z96.642 Presence of left artificial hip joint; G25.81 Restless legs syndrome; M48.061 Spinal stenosis, lumbar region without neurogenic claudication; M50.10 Cervical disc disorder with radiculopathy, unspecified cervical region; I25.119 Atherosclerotic heart disease of native coronary artery with unspecified angina pectoris; E78.5 Hyperlipidemia, unspecified; I65.29 Occlusion and stenosis of unspecified carotid artery; I12.9 Hypertensive chronic kidney disease with stage 1 through stage 4 chronic kidney disease, or unspecified chronic kidney disease; E78.2 Mixed hyperlipidemia; Z79.899 Other long term (current) drug therapy
CPT/HCPCS: 10080